=== PATIENT | female | born 1990 | race Two or more races ===

== ENCOUNTER 2023-09-08 13:17 | Outpatient (AMB) | payer OTHER, SELFPAY ==
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
[2023-09-08 14:28] VITALS: BP 140/82; PULSE 80; O2SAT 100; BMI 34.2
== END 2023-09-08 15:38 | disposition home or self-care (01) ==
PROVIDERS: Visit Provider Nurse Practitioner Primary Care
DX: M54.2 Cervicalgia (principal); M25.512 Pain in left shoulder; Z04.3 Encounter for examination and observation following other accident
CPT/HCPCS: 99213

== ENCOUNTER 2023-09-08 15:04 | Outpatient (REF) | payer OTHER, SELFPAY ==
--- NOTE | ~2023-09-08 | XR_ITS ---
EXAMINATION: XR SHOULDER, LEFT CLINICAL INFORMATION: Left shoulder pain COMPARISON: None available. TECHNIQUE: AP external rotation, Grashey, scapular Y views of the left shoulder. FINDINGS: Calcification is evident superior to the humeral head on the left consistent with calcific tendinosis. No fracture, dislocation or bone lesion is evident. XR/XR shoulder LT min 2V IMPRESSION: Calcific tendinosis.
--- NOTE | ~2023-09-08 | XR_ITS ---
EXAMINATION: XR CERVICAL SPINE CLINICAL INFORMATION: Cervicalgia COMPARISON: None available. TECHNIQUE: Frontal, lateral and open-mouth views of the cervical spine were obtained. FINDINGS: There are no prevertebral soft tissue or bony abnormalities demonstrated. No compression fractures or subluxations are identified. Alignment is maintained at the atlanto-axial articulation. The disc spaces are preserved. No endplate changes are seen. The prevertebral soft tissues are normal. The foramina are patent. There is positional straightening of the normal cervical curvature. XR/XR cervical spine 3V IMPRESSION: Positional straightening. Otherwise unremarkable plain radiographic examination of the cervical spine.
== END 2023-09-08 15:05 | disposition home or self-care (01) ==
LOC: HO.HMGCX 15:04
PROVIDERS: PCP Internal Medicine; Visit Provider Nurse Practitioner Primary Care
DX: M54.2 Cervicalgia (principal); M25.512 Pain in left shoulder
CPT/HCPCS: 72040; 73030

== ENCOUNTER 2025-08-11 15:25 | Outpatient (AMB) | payer OTHER, SELFPAY ==
--- OUTSIDE RECORDS SUMMARY | 2025-01-05 10:00 | XMS_ITS ---
Author Organization [facility] [address] Address [address] [place] [address] Care Team Providers Care Ip Technology Transactions Attorney Name Role Phone [facility] Primary C are Provider Unavailable SUE MEDINA Unavailable [phone] Medications Medication SIG (Take, Route, Frequency, Duration) Notes Start Date End Date Status Propranolol HCl 10 MG Take 1-2 tablets a s needed for anxiety Orally 1-2 times daily; Duration: 30 days 12/01/2024 Active hydrOXYzine HCl 10 MG TAKE 1 TABLET BY M OUT THREE TIMES DAILY NEEDED FOR ANXIETY FOR UP TO 90 DAYS Oral; Duration: 30 Days Active valACYclovir HCl 1 GM Oral; Duration: 5 Days Active EluRyng 0.12-0.015 MG/24HR Vaginal; Dura tion: 28 Days Active Encounters Encounter Location Date Provider Diagnosis [facility] [address] [place] [id number] 01/05/2025 SUE MEDINA Assessments Encounter Date Diagnosis (ICD Code) Assessment Notes Treatment Notes Treatment Clinical Notes Section Notes 01/05/2025 Lotus is a 34-year-old female with history of obesity who presents to the office today for weight management consult. Medical history, labs, allergies, medications, and social history reviewed with the patient. Provided education on healthy diet and lifestyle which includes high-protein, low carbohydrate, high-fiber, and a variety of fruits and vegetables. Patient encouraged to exercise with emphasis on resistance training minimum 3 times per week to maintain muscle mass and cardio to burn fat. All patient questions answered. Patient will follow-up in 2 to 4 weeks for weight management. 01/05/2025: # Anxiety: Patient reports both depression and anxiety, anxious symptoms predominate at work while depression more predominant at home. Has never trialed SSRIs. Prescribed hydroxyzine for as needed anxiety however finds the medication makes her feel drowsy. We discussed potential benefit of propranolol as needed for situational anxiety. Patient expressing interest. Will prescribe propranolol 10 to 20 mg taken p.o. 1 hour before anxiety producing event. If initial dose is insufficiently effective may increase by 10 to 20 mg prior to next anxiety provoking situation up to maximum of 60 mg daily. Discussed proper use of medication and potential side effect profile including but not limited to fatigue, dizziness, constipation, and decreased heart rate. Will continue to monitor based on effect of medication. 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 Continue Valtrex as needed. # Obesity: Weight 221 pounds, BMI 37.93. Discussed importance of diet and lifestyle to maintain healthy weight. Patient interested in scheduling weight loss consultation for further assistance. Will continue to monitor at subsequent visits. Patient was reassured and welcomed to the practice. We discussed that we stress a hollistic medical approach with emphasis on lifestyle modification. Patient was informed that a healthy lifestyle with exercise and good eating habits can help reduce their risk of medical complications. Patient is explained that obesity increases their risk of diabetes, cardiovascular disease, or organ damage. We spent a lot of time discussing the relationship between food, exercise, sleep, mental health and obesity. Patient was counseled on the importance EATING local, organic food when possible. Patient was educated on clean 15 and dirty dozen. I provided information about reading books called The Food Rules by Will Mann and Eat Fat Get Lean by Dr Jason Bro. Self education is important in the journey for weight management. Patient was offered diagnostic testing/ SECA scale. We want to measure visceral adiposity, advanced body composition, adverse lipids, fatty acid balance, risk for heart disease and atherosclerosis, markers of inflammation and genetic susceptibility. Patient was counseled on weight management and was advised to lose weight using A. Meal Replacement Products Patient was educated on the replacement products called optifast. This is a good way of taking fixed amount of calories. It has been shown in studies to be ineffective weight management tool. This however has to be coupled with lifestyle intervention as well as laboratory data and EKG monitoring. It is impossible to know how a person will tolerate complete meal replacement. The side effects of meal replacement and weight loss could include syncopal attacks, dizziness, gallstones, potential cholecystectomy, possible heart attack and even . The benefits of meal replacement would be potential weight loss but no guarantees can be made. Meal replacement products are not covered by insurance. Once the patient has bought these products we cannot return them B. Lifestyle management which includes several strategies as below 1. Eat a low carbohydrate good fat good protein diet. Eliminate refined carbohydrates from the diet. Limit sugared beverages. Eat local organic when possible. Cook your own meals. Read food labels. Focus on healthy snacks. Portion control and food with low glycemic index 2. Exercise regularly. Try to get at least 6000 steps a day. Use a predominant to track activity level. Consider using apps like 7 minute excercise, myGidsynesspal, lose it, stick as needed for self-monitoring and weight management. Consider group exercises. Consider hiring a retail personal banker. Regular exercise is shafer to sustainable health and prevents as a buffer against weight regain 3. Sleep is most important for healing. Try to sleep at least 6-8 hours a night. A good quality sleep needs a sleep ritual with ideal room temperature of around 68. It might help to take a shower and have no electronics in the room and sleep in a very dark room without artificial light. Start sleep routine and get up early in the morning and go to bed on time. 4. Make a social connection. Surround yourself with positive people with positive energy. Connect with friends and family. 5. Get into the habit of meditating and mindfulness while doing everything. 6. Go outside and connect with nature. C. Prescription medications Patient was educated on the use of prescription medications for medical weight loss. This is a growing list and includes phentermine, Topamax,Qsymia, contrave, belviq and saxenda, wegovy etc. All prescription medications could have side effects including but not limited to kidney stones, seizure disorder cardiac arrhythmias heart attack pancreatitis, GI effects, Etc. Patient was encouraged to read the prescription insert and have coaching with their pharmacist and make an informed decision about taking medication and know that these medications are being prescribed with good intentions and we do not know how a patient would react to the medication. Some medications are FDA approved for weight loss and there is also off label use depending on patient's inability to afford medications in an attempt to lose weight D. Behavioral counseling was done to establish a relationship between food and an mood. Patient was provided information about local counseling and psychiatry and Dr Ritchie at [facility]. We would like to cover regular topics and build on low glycemic eating exercise mindful eating, using yoga and meditation along with deep breathing and connecting with friends and family. E. MASS PAT reviewed, Patient's current medications were reviewed and opinion was given on medication that can cause weight gain and can be substituted F. Patient was assessed for risk with obesity including and not limiting to atherosclerosis heart disease stroke kidney disease, restrictive lung disease, irritable bowel syndrome and overall mortality. Risk of developing prediabetes diabetes and metabolic syndrome was discussed G. Therapeutic plan: We have decided to make therapeutic plan which would include choosing wisely on calories restricting portion getting active, tracking weight, getting good quality sleep and working on time management H. Patient will follow up in 4 weeks for weight management Total time spent today was 60 minutes of which greater than 50% was spent on coordinating and counseling Case discussed with collaborating physician Juan Carlos Martinez who reviewed the assessment and plan. Chart, medications, labs, vital signs reviewed. Dictation was accomplished with the use of Anipipo voice recognition software, prone to medical misidentifications and grammatical errors. This is unintentional and the practitioner does try to identify and correct these, but some could still be present. Please do not hesitate to contact practitioner for clarification. All questions answered to patients satisfaction. Patient verbalized understanding of diagnosis and treatments explained. To call sooner prior to next visit it any questions/concerns arise. Plan Of Treatment No Information Progress Notes * Erik PORRASOB:[birth year] (35 yo F)Acc No.[id number]:01/05/2025 Patient: Lotus CAMPBELL Provider: Hay MEDINA :1990 A ge:34 Y S ex:Female Date:01/05/2025 Address:[facility] [place] Pcp:[facility] Dorian Subjective: * Chief Complaints: * * HPI: C onstitutional: Lotus is a 34-year-old female with history of anxiety, asthma, cold sores, and obesity who presents today for weight management consultation. * ROS: C onstitutional: Denies sudden weight loss, fever, night sweats, excessive fatigue, or changes in sleep. CV: Denies chest pain or heart palpitations. Respiratory: Denies SOB, wheezing, or pleuritic pain. GI: Denies n/v/d, constipation, blood in stools, pain associated with eating, indigestion, or difficulty/pain with swallowing. MSK: Denies back pain, joint deformity/pain, or muscle weakness. Integumentary: Denies skin changes. Endocrine: Denies polyuria, polyphagia, or polydipsia. No heat/cold intolerance or excessive thirst. * Medical History: * Medications: T aking EluRyng 0.12-0.015 MG/24HR Ring Vaginal , Taking valACYclovir HCl 1 GM Tablet Oral , Taking hydrOXYzine HCl 10 MG Tablet TAKE 1 TABLET BY MOUTH THREE TIMES DAILY NEEDED FOR ANXIETY FOR UP TO 90 DAYS Oral , Taking Propranolol HCl 10 MG Tablet Take 1-2 tablets as needed for anxiety Orally 1-2 times daily Objective: * Vitals: * Physical Examination: G eneral: Age appropriate, well-appearing 34-year-old female in no acute distress, speaking in full sentences without respiratory compromise. Well groomed, well developed. Alert, interactive. Skin: Warm, dry and intact. No lesions/rashes/erythema. HEENT: Normocephalic/atraumatic. Neck/Thyroid: Thyroid symmetrical, nonenlarged, and free of nodules to palpation. Lungs: Clear to auscultation bilaterally. CV: Regular rate and rhythm without murmurs, rubs, or gallops. 2+ radial pulses bilaterally. Neuro: CN II-XII grossly intact. Steady gait with non-assisted ambulation observed. Psych: Stable mood and affect. Assessment: * Assessment: Lotus is a 34-year-old femal e with history of obesity who presents to the office today for weight management consult. Medical history, labs, allergies, medications, and social history reviewed with the patient. Provided education on healthy diet and lifestyle which includes high-protein, low carbohydrate, high-fiber, and a variety of fruits and vegetables. Patient encouraged to exercise with emphasis on resistance training minimum 3 times per week to maintain muscle mass and cardio to burn fat. All patient questions answered. Patient will follow-up in 2 to 4 weeks for weight management. 01/05/2025: # Anxiety: Patient reports both depression and anxiety, anxious symptoms predominate at work while depression more predominant at home. Has never trialed SSRIs. Prescribed hydroxyzine for as needed anxiety however finds the medication makes her feel drowsy. We discussed potential benefit of propranolol as needed for situational anxiety. Patient expressing interest. Will prescribe propranolol 10 to 20 mg taken p.o. 1 hour before anxiety producing event. If initial dose is insufficiently effective may increase by 10 to 20 mg prior to next anxiety provoking situation up to maximum of 60 mg daily. Discussed proper use of medication and potential side effect profile including but not limited to fatigue, dizziness, constipation, and decreased heart rate. Will continue to monitor based on effect of medication. 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 Continue Valtrex as needed. # Obesity: Weight 221 pounds, BMI 37.93. Discussed importance of diet and lifestyle to maintain healthy weight. Patient interested in scheduling weight loss consultation for further assistance. Will continue to monitor at subsequent visits. Patient was reassured and welcomed to the practice. We discussed that we stress a hollistic medical approach with emphasis on lifestyle modification. Patient was informed that a healthy lifestyle with exercise and good eating habits can help reduce their risk of medical complications. Patient is explained that obesity increases their risk of diabetes, cardiovascular disease, or organ damage. We spent a lot of time discussing the relationship between food, exercise, sleep, mental health and obesity. Patient was counseled on the importance EATING local, organic food when possible. Patient was educated on clean 15 and dirty dozen. I provided information about reading books called The Food Rules by Will Mann and Eat Fat Get Lean by Dr Jason Bro. Self education is important in the journey for weight management. Patient was offered diagnostic testing/ SECA scale. We want to measure visceral adiposity, advanced body composition, adverse lipids, fatty acid balance, risk for heart disease and atherosclerosis, markers of inflammation and genetic susceptibility. Patient was counseled on weight management and was advised to lose weight using A. Meal Replacement Products Patient was educated on the replacement products called optifast. This is a good way of taking fixed amount of calories. It has been shown in studies to be ineffective weight management tool. This however has to be coupled with lifestyle intervention as well as laboratory data and EKG monitoring. It is impossible to know how a person will tolerate complete meal replacement. The side effects of meal replacement and weight loss could include syncopal attacks, dizziness, gallstones, potential cholecystectomy, possible heart attack and even . The benefits of meal replacement would be potential weight loss but no guarantees can be made. Meal replacement products are not covered by insurance. Once the patient has bought these products we cannot return them B. Lifestyle management which includes several strategies as below 1. Eat a low carbohydrate good fat good protein diet. Eliminate refined carbohydrates from the diet. Limit sugared beverages. Eat local organic when possible. Cook your own meals. Read food labels. Focus on healthy snacks. Portion control and food with low glycemic index 2. Exercise regularly. Try to get at least 6000 steps a day. Use a predominant to track activity level. Consider using apps like 7 minute excercise, myGidsynesspal, lose it, stick as needed for self-monitoring and weight management. Consider group exercises. Consider hiring a retail personal banker. Regular exercise is shafer to sustainable health and prevents as a buffer against weight regain 3. Sleep is most important for healing. Try to sleep at least 6-8 hours a night. A good quality sleep needs a sleep ritual with ideal room temperature of around 68. It might help to take a shower and have no electronics in the room and sleep in a very dark room without artificial light. Start sleep routine and get up early in the morning and go to bed on time. 4. Make a social connection. Surround yourself with positive people with positive energy. Connect with friends and family. 5. Get into the habit of meditating and mindfulness while doing everything. 6. Go outside and connect with nature. C. Prescription medications Patient was educated on the use of prescription medications for medical weight loss. This is a growing list and includes phentermine, Topamax,Qsymia, contrave, belviq and saxenda, wegovy etc. All prescription medications could have side effects including but not limited to kidney stones, seizure disorder cardiac arrhythmias heart attack pancreatitis, GI effects, Etc. Patient was encouraged to read the prescription insert and have coaching with their pharmacist and make an informed decision about taking medication and know that these medications are being prescribed with good intentions and we do not know how a patient would react to the medication. Some medications are FDA approved for weight loss and there is also off label use depending on patient's inability to afford medications in an attempt to lose weight D. Behavioral counseling was done to establish a relationship between food and an mood. Patient was provided information about local counseling and psychiatry and Dr Ritchie at [facility]. We would like to cover regular topics and build on low glycemic eating exercise mindful eating, using yoga and meditation along with deep breathing and connecting with friends and family. E. MASS PAT reviewed, Patient's current medications were reviewed and opinion was given on medication that can cause weight gain and can be substituted F. Patient was assessed for risk with obesity including and not limiting to atherosclerosis heart disease stroke kidney disease, restrictive lung disease, irritable bowel syndrome and overall mortality. Risk of developing prediabetes diabetes and metabolic syndrome was discussed G. Therapeutic plan: We have decided to make therapeutic plan which would include choosing wisely on calories restricting portion getting active, tracking weight, getting good quality sleep and working on time management H. Patient will follow up in 4 weeks for weight management Total time spent today was 60 minutes of which greater than 50% was spent on coordinating and counseling Case discussed with collaborating physician Juan Carlos Martinez who reviewed the assessment and plan. Chart, medications, labs, vital signs reviewed. Dictation was accomplished with the use of Anipipo voice recognition software, prone to medical misidentifications and grammatical errors. This is unintentional and the practitioner does try to identify and correct these, but some could still be present. Please do not hesitate to contact practitioner for clarification. All questions answered to patients satisfaction. Patient verbalized understanding of diagnosis and treatments explained. To call sooner prior to next visit it any questions/concerns arise. Plan: * Treatment: * Images: Billing Information: * Visit Code: * Procedure Codes: * Electronic signature of MINNIE MEDINA PA-C, [id number] on 08/11/2025 at 03:27 PM EDT Sign off status: Pending * Provider: Hay MEDINA Date: 0 01/05/2025 Generated for Joe tomlinson/Linda/eTransmitting on: 1 03:27 PM EDT History and Physical Notes * HPI (History of Present Illness) Category Sub-Category Detail Notes Category Not es Constitutional Lotus is a 34 -year-old female with history of anxiety, asthma, cold sores, and obesity who presents today for weight management consultation. Physical Examination Category Sub-Category Detail Notes Section Note s General: Age appropriate, well-appearing 34-year-old female in no acute distress, speaking in full sentences without respiratory compromise. Well groomed, well developed. Alert, interactive. Skin: Warm, dry and intact. No lesions/rashes/erythema. HEENT: Normocephalic/atraumatic. Neck/Thyroid: Thyroid symmetrical, nonenlarged, and free of nodules to palpation. Lungs: Clear to auscultation bilaterally. CV: Regular rate and rhythm without murmurs, rubs, or gallops. 2+ radial pulses bilaterally. Neuro: CN II-XII grossly intact. Steady gait with non-assisted ambulation observed. Psych: Stable mood and affect.
--- OUTSIDE RECORDS SUMMARY | 2025-01-12 11:15 | XMS_ITS ---
Author Organization [facility] [address] Address [address] [place] [address] Care Team Providers Care Spare Hand Carding Name Role Phone [facility] Primary C are Provider Unavailable SUE MEDINA [phone] Encounters Encounter Location Date Provider Diagnosis [facility] [address] [address] 01/12/2025 SUE MEDINA Plan Of Treatment No Information Progress Notes * Erik PORRASOB:[birth year] (35 yo F)Acc No.[id number]:01/12/2025 CPE Patient: Lotus CAMPBELL Provider: Hay MEDINA :1990 A ge:34 Y S ex:Female Date:01/12/2025 Address:[address] [id number] Pcp:[facility] Dorian Subjective: * Chief Complaints: * * Medical History: Objective: * Vitals: Assessment: Plan: * Treatment: * Images: Billing Information: * Visit Code: * Procedure Codes: Care Plan Details* * Electronic signature of MINNIE MEDINA PA-C, [id number] on 08/11/2025 at 03:27 PM EDT Sign off status: Pending * Provider: Hay MEDINA Date: 0 01/12/2025 Generated for Joe tomlinson/Fabeatris/eTransmitting on: 1 03:27 PM EDT
--- OUTSIDE RECORDS SUMMARY | 2025-02-07 10:45 | XMS_ITS ---
Author Organization [facility] [address] Address [address] [place] [address] Care Team Providers Care Narrative Writer Name Role Phone [facility] Primary C are Provider Unavailable SUE MEDINA [phone] Encounters Encounter Location Date Provider Diagnosis [facility] [address] [address] 02/07/2025 SUE MEDINA Plan Of Treatment No Information Progress Notes * Erik PORRASOB:[birth year] (35 yo F)Acc No.[id number]:02/07/2025 Patient: Santiago CAMPBELLie Provider: Hay MEDINA :1990 A ge:34 Y S ex:Female Date:02/07/2025 Address:[address] [id number] Pcp:[facility] Dorian Subjective: * Chief Complaints: * * Medical History: Objective: * Vitals: Assessment: Plan: * Treatment: * Images: Billing Information: * Visit Code: * Procedure Codes: * Electronic signature of MINNIE MEDINA PA-C, [id number] on 08/11/2025 at 03:27 PM EDT Sign off status: Pending * Provider: Hay MEDINA Date: 0 02/07/2025 Generated for Joe tomlinson/Fabeatris/eTransmitting on: 1 03:27 PM EDT
--- OUTSIDE RECORDS SUMMARY | 2025-08-11 15:27 | XMS_ITS | Clinical Summary ---
Author Organization [facility] [address] [place] [address] [place], [place] [address] [address] Phone Care Team Providers Care Job Development Specialist Name Role Phone Unavailable Primary Care Provider Unavailabl e Allergies Active Allergy Reactions Criticality Noted Date Comments Amoxicillin Trihydrate Hives 08/04/2012 Latex Rash Medium 05/03/2012 Medications valACYclovir (VALTREX) 1 gram tablet Take 1 tablet (1,000 mg total) by mouth 1 (one) time each day. 03/09/20 24 Active albuterol HFA (PROAIR HFA ; PROVENTIL HFA ; VENTOLIN HFA) 90 mcg/actuation inhaler Inhale 2 Puffs into the lungs 4 times daily as needed for Cough, Wheezing or Shortness of Breath. 12/27/19 23 Active hydrOXYzine HCL (ATARAX) 10 mg tablet Take 1 Tablet by mouth 3 times daily as needed for Anxiety for up to 90 days. Active furosemide (LASIX) 20 mg tablet Take 1 tablet (20 mg total) by mouth 1 (one) time each day. 30 each 01/05/20 25 Active etonogestreL-eth inyl estradioL (EluRyng) 0.12-0.015 mg/24 hr vaginal ringIndications: Encounter for surveillance of vaginal ring hormonal contraceptive device Insert vaginally and leave in place for 3 consecutive weeks, then remove for 1 week. 1 each 2 05/22/20 25 Active semaglutide (Wegovy) 0.25 mg/0.5 mL injection penIndications:O besity (BMI 30.0-34.9) Inject 0.25 mg under the skin every 7 (seven) days. 2 mL 2 03/06/20 2024 Discontinued Active Problems Problem Noted Date Diagnosed Date Abnormal Pap smear of cervix 09/06/2024 Overview (09/06/2024): LGSIL with colpo & bx showing HPV Yeast vaginitis 07/19/2021 Overview (09/06/2024): Last Assessment & Plan: Rx for fluconazole. 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 I gave Rx for tx dose prn. Offered suppression, but she declines at this time. UpToDate article patient education material given. Port-wine stain of face 08/08/2015 Asthma 01/16/2014 Encounters Date Type Department Care Team Description 07/27/2025 Telephone Adult Medicine [place] - [address] [phone] Sejal Winters MD 05/22/2025 4:00 PM EDT Office Visit Obstetrics and Gynecology - [address] [phone] Porsha Garza CNM Unprotected sex (Primary Dx); Screen for STD (sexually transmitted disease); Encounter for surveillance of vaginal ring hormonal contraceptive device; examination or test, negative result; control counseling from Last 3 Months Immunizations Immunization Administration Dates Next Due DTaP (Infanrix) 6wks to less than 7yo ,03/09/1990,1988,09/09,1988 [id number]-KYD-VXC (Pentacel) 2mo to less than 5yo 02/07/1990 Hepatitis B Pediatric (Enger ix B; Recombivax HB) to less than 20 yo 03/09/2000,10/09/1999,09/09/1999 IPV Inactivated polio (Ipol) 6wks and older 1988,1988 Influenza trivalent, 0.5mL, preservative free (Fluarix; FluLaval; Fluzone) ages 6mo and older (Afluria) 3 years and older 08/21/2021 MMR, measles mumps and rubel la Live (Priorix; M-M-R II) 12mo and older 06/09/2000,02/07/1990 OPV 04/09/1994,03/09/1990 Pneumococcal polysaccharide 23 valent (Pneumovax 23) 2yo and older 01/16/2014 Tdap Tetanus diptheria acell ular pertussis (Boostrix; Adacel) 7yo and older 01/15/2009 Surgical History Surgery Date Site/Laterality Comments HERNIA REPAIR PROCEDURE: REPAIR INGUINAL HERNIA; COMMENT: right WISDOM TOOTH EXTRACTION PROCEDURE: HISTORICAL WISDOM TEETH EXTRACTION TONSILLECTOMY PROCEDURE: HISTORICAL TONSILLECTOMY OTHER SURGICAL HISTORY 10/27/2018 PROCEDURE: [place] ENDOMETRIAL BX W/WO ENDOCERVIX BX W/O DILAT SPX; COMMENT: [facility] report-benign tissue Medical History Medical History Date Comments Asthma DX:Asthma GERD (gastroesophageal reflux disease) 07/08/2019 DX:GERD (gastroesophageal reflux disease) Abnormal Pap smear of cervix DX: Abnormal Pap smear of cervix; COMMENT: LGSIL with colpo & bx showing HPV Family history of breast cancer 10/17/2015 DX:Family history of breast cancer Herpes simplex vulvovaginitis 03/17/2018 DX :Herpes simplex vulvovaginitis Lichen simplex chronicus 01/27/2018 DX:Lich en simplex chronicus Port-wine stain of face 08/08/2015 DX:Port- wine stain of face Family History Medical History Relation Name Comments Breast cancer Aunt 1 unilateral; ma ternal aunt Breast cancer Aunt 2 unilateral; ma ternal aunt Breast cancer Aunt 3 paternal aunt; unilateral Other: SEIZURE DISORDER Father DECE ASED AGE 29 Uterine cancer Maternal Grandmother Hypertension Mother bipolar, diabet es, alcohol Hypertension Paternal Grandmother diabete s Relation Name Status Comments Aunt 1 Aunt 2 Aunt 3 Father (Age 28) seizure di soder? Maternal Grandmother Mother Alive Paternal Grandmother Sister 1 Alive hypothyroid Sister 2 Alive Social History Tobacco Use Types Packs/Day Years Used Date Smoking Tobacco: Never Smokeless Tobacco: Never Tobacco Cessation:Counseling Given: Not Answered Alcohol Use Standard Drinks/Week Comments Not Currently 0.8 (1 standard drink = 0.6 oz p ure alcohol) Housing Instability Answer Date Recorde d Are you worried that in the next 2 months you may not have stable housing? No 05/17/2025 Food Access & Nutrition Answer Date Rec orded Do you have access to a vari ety of food including fruits and vegetables? Yes 05/17/2025 Access to Healthcare Answer Date Record ed Within the last 3 months, ho w many times did you visit the emergency department for your medical care? 0 05/17/2025 Health Literacy Answer Date Recorded How often do you need to hav e someone help you when you read instructions, pamphlets, or other written material from your doctor or pharmacy? Never 05/17/2025 Caregiver: How often do you need to have someone help you when you read instructions, pamphlets, or other written material from your doctor or pharmacy? Not on file 05/17/2025 Financial Risk Answer Date Recorded How hard is it for you to pa y for the very basics like food, housing, medical care, and air conditioning / heating? Somewhat hard 05/17/2025 Transportation Answer Date Recorded Has the lack of transportati on kept you from meetings, work, or from getting things needed for daily living? No Has the lack of transportati on kept you from medical appointments or from getting medications? No 05/17/2025 Social Isolation Answer Date Recorded How often do you feel lonely or isolated from those around you? Sometimes 05/17/2025 Food Risk Answer Date Recorded Within the past 12 months we worried whether our food would run out before we got money to buy more. Never true 05/17/2025 Within the past 12 months th e food we bought just didn't last and we didn't have money to get more. Never true 05/17/2025 Dependent Care Answer Date Recorded Do you need help finding or paying for care for your loved ones. For example, teacher early childhood development or elderly care for an older adult? No 05/17/2025 Education Answer Date Recorded Do you think completing more education or training, like finishing a GED, going to college, or learning a trade, would be helpful for you? Patient declined 05/17/2025 Employment and Income Answer Date Recor ded During the last four weeks, have you been actively looking for work? Patient declined 05/17/2025 Living Situation Answer Date Recorded What is your living situation? Unrecognized valu e 05/17/2025 Comments Unknown Sex and Gender Information Value Date Recorded Sex Assigned at Not on file Legal Sex Female 4:54 AM EST Gender Identity Not on file Sexual Orientation Not on file Obstetrics History Para Term AB IAB SAB Ectopic Multiple Livin g Live Births 2 2 2 0 2 Date Outcome GA Total Labor Labor/2nd/3rd Weight Sex Type Anes PTL Linda A1 A5 Name Clin Term Term Last Filed Vital Signs Vital Sign Reading Time Taken Comments Blood Pressure 120/78 05/22/2025 4:42 PM EDT Pulse 63 05/22/2025 4:42 PM EDT Temperature - - Respiratory Rate 14 05/22/2025 4:42 PM EDT Oxygen Saturation - - Inhaled Oxygen Concentration - - Weight 101 kg (223 lb 3.2 oz) 05/22/2025 4:42 PM EDT Height 150 cm (4' 11.06 ) 05/22/2025 4:42 PM EDT Body Mass Index 45 05/22/2025 4:42 PM EDT Plan of Treatment Health Maintenance Due Date Last Done Comments Breast Cancer Screening 1988 Pneumococcal Vaccine: Pediatrics (0 to 5 Years) and At-Risk Patients (6 to 49 Years) (2 of 2 - PCV) 01/16/2015 01/16/2014 HPV Vaccines (1 - 3-dose SCDM series) 2015 DTaP,Tdap,and Td Vaccines (7 - Td or Tdap) 01/15/2019 01/15/2009, 04/09/1999, 03/09/1990, Additional history exists COVID-19 Vaccine ( - season) 2025 10/12/2021, 12/14/2020, 11/23/2020 Influenza Vaccine (#1) 2025 08/21/2021 Social Influencers of Health Screening 05/17/2026 05/17/2025 Cervical Cancer Screening: HPV 10/10/2026 10/10/2021 Cholesterol Screening (Lipid Panel) 12/09/2028 12/09/2023 RSV Immunization Adult Patients (1 - 1-dose 75+ series) 2063 HIB Vaccines Completed 02/07/1990, 02/07/1990 IPV Vaccines Completed 04/09/1994, 05/11/1989, 02/07/1990, Additional history exists Hepatitis B Vaccines Completed 03/09/2000, 10/09/1999, 09/09/1999 MMR Vaccines Completed 06/09/2000, 02/07/1990 HIV Screening Completed 07/19/2021 Hepatitis C Screening Completed 07/24/2021 Depression Screening Completed 05/17/2025, 08/30/20 24 Hepatitis A Vaccines Aged Out No long er eligible based on patient's age to complete this topic Meningococcal ACWY Vaccine Aged Out N o longer eligible based on patient's age to complete this topic Meningococcal B Vaccine Aged Out No l onger eligible based on patient's age to complete this topic RSV Immunization Patients Under 20 months Aged Out No longer eligible based on patient's age to complete this topic Varicella Vaccines Aged Out No longer eligible based on patient's age to complete this topic Procedures Procedure Name Priority Date/Time Associated Diagnosis Comments POC , URINE DIAGNOSTIC Routine 05/22/2025 5:13 PM EDT Encounter for surveillance of vaginal ring hormonal contraceptive device TRICHOMONAS VAGINALIS ANTIGEN Routine 05/22/2025 4:58 PM EDT Screen for STD (sexually transmitted disease) CHLAMYDIA TRACHOMATIS AND NEISSERIA GONORRHOEAE PCR Routine 05/22/2025 4:58 PM EDT Screen for STD (sexually transmitted disease) DEPRESSION SCREENING Routine 08/30/2024 LIPID PANEL Routine 12/09/2023 HPV Routine 10/10/2021 HEPATITIS C SCREENING Routine 07/24/2021 HIV SCREENING Routine 07/19/2021 from Last 3 Months or Most Recently Relevant to Health Maintenance Results * POC , urine manually resulted (05/22/2025 5:13 PM EDT) HCG, Ur POC Negative Negative POC hCG Int QC Pass? Yes Yes Urine Urine specimen obtained by clean catch procedure / Unknown 05/22/2025 5:13 PM EDT us Porsha Garza CNM POINT OF CARE TEST ENTER/EDIT ORDERABLES Final Result * Trichomonas vaginalis antigen (05/22/2025 4:58 PM EDT) Trichomonas vaginalis Negative Negative 05/23/2025 4:02 PM EDT [facility] Swab Vaginal structure / Unknown Non-blood Collection / Unknown 05/22/2025 4:58 PM EDT 05/22/2025 4:58 PM EDT us Porsha [facility] MICROBIOLOGY - GENERAL ORD ERABLES Final Result Performing Organization Address City/[facility]/ZIP Co de Phone Number [facility] [address] [place] [address], [place] [phone] * Chlamydia trachomatis and Neisseria gonorrhoeae molecular study (05/22/2025 4:58 PM EDT) Pathologist [facility] Neisseria gonorrhoeae PCR Negative Negative LAB MOLECULAR DIAGNOSTICS METHOD 05/24/2025 9:35 AM EDT [facility] Chlamydia trachomatis PCR Negative Negative LAB MOLECULAR DIAGNOSTICS METHOD 05/24/2025 9:35 AM EDT [facility] Swab Cervix uteri structure / Unknown Non-blood Collection / Unknown 05/22/2025 4:58 PM EDT 05/22/2025 4:58 PM EDT us Porsha [facility] MICROBIOLOGY - GENERAL ORD ERABLES Final Result [facility] [address] [place] [address], [place] [phone] * Hm Depression Screening (08/30/2024) [facility] Depression Screening abstracted [facility] Provider HEALTH MAINTENANCE Final Result * (ABNORMAL) Lipid panel (12/09/2023) [facility] LDL/HDL Ratio 2 0 - 4 Triglycerides 64 0 - 150 mg/dL Cholesterol 207(A) 0 - 200 mg/dL HDL 86 >=40 mg/dL LDL Cholesterol 109(A) 0 - 100 mg/dL Blood Venous blood specimen / Unknown Result [facility] Provider LAB BLOOD ORDERABLES Poon[place] l Result * Cervical Cancer Screening: HPV (10/10/2021) [facility] Cervical Cancer Screening: HPV abstracted ,positive Result [facility] Provider HEALTH MAINTENANCE Final Result * Hepatitis C Screening (07/24/2021) [facility] Hepatitis C Screening abstracted Result [facility] Provider HEALTH MAINTENANCE Final Result * HIV Screening (07/19/2021) [facility] HIV Screening abstracted [facility] Provider HEALTH MAINTENANCE Final Result from Last 3 Months or Most Recently Relevant to Health Maintenance Insurance [facility] [employer]
--- OUTSIDE RECORDS SUMMARY | 2025-08-11 15:27 | XMS_ITS | Clinical Summary ---
Author Organization [facility] Address [address] [place] [address] Care Team Providers Care Vault Mechanic Name Role Phone Aldair Gooden MD Primary Care Provider [phone] Allergies Active Allergy Reactions Criticality Noted Date Comments Amoxicillin 12/08/2018 Latex 12/08/2018 Medications Medication Sig Dispensed Refills Start Date End Date Status norelgestromin-ethiny l estradiol (ORTHO EVRA) 150-35 MCG/24HR Place 1 patch onto the skin once a week. 0 Active valACYclovir (VALTREX) 1000 MG tablet Take 1,000 mg by mouth 2 (two) times a day. 0 Active omeprazole (PriLOSEC) 20 MG capsule Take 20 mg by mouth daily. 0 Active albuterol (PROVENTIL HFA;VENTOLIN HFA) 108 (90 Base) MCG/ACT inhaler Inhale 2 puffs into the lungs every 6 (six) hours as needed for wheezing. 0 Active meclizine (ANTIVERT) 25 MG tablet Take 1 tablet (25 mg total) by mouth 3 (three) times a day as needed for dizziness. 30 tablet 0 12/08/2018 Active Social History Tobacco Use Types Packs/Day Years Used Date Smoking Tobacco: Never Smokeless Tobacco: Never Sex and Gender Information Value Date Recorded Sex Assigned at Female 12/08/2018 11:22 AM EST Gender Identity Female 12/08/2018 11:22 AM EST Sexual Orientation Not on file Last Filed Vital Signs Vital Sign Reading Time Taken Comments Blood Pressure 120/60 12/08/2018 12:50 PM EST Pulse 60 12/08/2018 12:50 PM EST Temperature 36.2 C (97.2 F) 12/08/2018 12:50 PM EST Respiratory Rate 14 12/08/2018 12:5 0 PM EST Oxygen Saturation 100% 12/08/2018 12: 50 PM EST Inhaled Oxygen Concentration - - Weight 81.6 kg (180 lb) 12/08/2018 10:4 4 AM EST Simultaneous filing. User may be unaware of other data. Height 162.6 cm (5' 4 ) 12/08/2018 10:4 4 AM EST Simultaneous filing. User may be unaware of other data. Body Mass Index 30.9 12/08/2018 10:44 AM EST Plan of Treatment Not on file Care Teams Vault Mechanic Relationship Specialty Start Date End Date Aldair Gooden MD [address] [facility] [place] [address] PCP - General Family Medicine 12/08/18
--- OUTSIDE RECORDS SUMMARY | 2025-08-11 15:27 | XMS_ITS | Clinical Summary ---
Author Organization [facility] Address [address] [id number] Care Team Providers Care Course Developer Name Role Phone Aldair Gooden MD Primary Care Provider [phone] Aldair Gooden MD Unavailable [phone] Allergies Active Allergy Reactions Criticality Noted Date Comments Amoxicillin 01/05/2019 Reactions: Rash Latex 01/05/2019 Reactions: Rash , TouchWorks Comment: [id number]: local rash Medications Omeprazole Magnesium (PriLOSEC OTC) 20 MG EC tablet TAKE 1 TABLET DAILY. 0 01/05/2019 Active Valacyclovir HCl (Valtrex) 1 g tablet Take 1000mg as needed 0 01/05/2019 Active Albuterol (ProAir HFA) 90 mcg/ACT inhaler INHALE 1 TO 2 PUFFS EVERY 4 TO 6 HOURS NEEDED. 1 0 01/05/2019 Active Cetirizine-Pseu doephedrine (Allergy Rel D12, Cetirizine,) 5-120 MG per 12 hr tablet 0 01/05/2019 Active Meclizine HCl (ANTIVERT) 25 MG tablet TAKE 1 TABLET 3 TIMES DAILY NEEDED. 30 1 01/05/2019 Active Multiple Vitamin (Multi Vitamin) Tab TAKE 1 TABLET DAILY. 0 01/05/2019 Active Cholecalciferol (Vitamin D) 25 MCG (1000 UT) Tab TAKE 1 TABLET DAILY. 0 01/05/2019 Active Ascorbic Acid (Vitamin C) 500 MG tablet TAKE 2 TABLET Daily tablet 0 01/05/2019 Active Bacillus Coagulans-Inuli n (Probiotic) 1-250 BILLION-MG Cap TAKE 1 CAPSULE Daily capsule 0 01/05/2019 Active Sertraline HCl (ZOLOFT) 50 MG tablet TAKE 1 TABLET DAILY. 90 0 01/05/2019 Active Doxycycline Hyclate (VIBRA-TABS) 100 MG tablet TAKE 1 TABLET EVERY 12 HOURS DAILY. 20 0 01/19/2019 Active HYDROcodone Bit-Homatrop MBr (HYCODAN) 5-1.5 MG/5ML liquid TAKE 5 ML EVERY 4 HOURS NEEDED. 210 0 01/19/2019 Active Active Problems Problem Noted Date Diagnosed Date Acute bronchitis 01/19/2019 Herpes simplex 01/05/2019 Anxiety disorder 01/05/2019 Overview (12/13/2023): Description: Lu Tierney - therapist Eliecer. Papanicolaou smear 01/05/2019 Overview (12/13/2023): Description: Vandana Diamond, 08/2018. did colposcopy and came back normal. Class 1 obesity due to exces s calories without serious comorbidity with body mass index (BMI) of 30.0 to 30.9 in adult 01/05/2019 Encounter for screening mammogram for breast can cer 01/05/2019 Overview (12/13/2023): Description: 10/2018. normal Exercise-induced asthma 01/05/2019 GERD (gastroesophageal reflux disease) 9 Family History Medical History Relation Name Comments Diabetes Mother diabetes mellit us : Mother, Paternal Grandmother, Paternal Uncle Hypertension Mother hypertension : Mother, Paternal Grandmother, Paternal Uncle Psych/Mental Health Mother bipolar disorder : Mother, Sibling Diabetes Paternal grandmother diabete s mellitus : Mother, Paternal Grandmother, Paternal Uncle Hypertension Paternal grandmother hyperte nsion : Mother, Paternal Grandmother, Paternal Uncle Diabetes Paternal uncle diabetes solomon itus : Mother, Paternal Grandmother, Paternal Uncle Hypertension Paternal uncle hypertension : Mother, Paternal Grandmother, Paternal Uncle Psych/Mental Health Sibling bipolar disorder : Mother, Sibling Relation Name Status Comments Mother Paternal grandmother Paternal uncle Sibling Social History Tobacco Use Types Packs/Day Years Used Date Smoking Tobacco: Never Assessed Comments:Smoking Status:No c urrent tobacco use Comments Unknown Sex and Gender Information Value Date Recorded Sex Assigned at Not on file Legal Sex Female 8:32 PM EDT Gender Identity Not on file Sexual Orientation Not on file Last Filed Vital Signs Vital Sign Reading Time Taken Comments Blood Pressure 124/90 01/19/2019 11:34 AM EDT Pulse 67 01/19/2019 11:34 AM EDT Temperature 37.1 C (98.7 F) 01/19/2019 11:34 AM EDT Respiratory Rate 18 01/19/2019 11:34 AM EDT Oxygen Saturation 99% 01/19/2019 11:34 AM EDT Inhaled Oxygen Concentration - - Weight 85.9 kg (189 lb 6.4 oz) 01/19/2019 11:34 AM EDT Height 162.6 cm (5' 4 ) 01/05/2019 3:21 PM EST Body Mass Index 32.51 01/05/2019 3:21 PM EST Plan of Treatment Health Maintenance Due Date Last Done Comments Hepatitis C Screening 1988 Pap Smear 2004 DTaP/Tdap/Td (1 - Tdap) 2006 Hep B (1 of 3 - 19+ 3-dose series) 2007 COVID-19 Vaccine (1 - 2023-2 5 season) 2025 Influenza (#1) 2025 Zoster (Shingrix) (1 of 2) 2038 HPV Vaccine (No Doses Required) Completed Hep A Aged Out No longer eligi ble based on patient's age to complete this topic Hib Aged Out No longer eligi ble based on patient's age to complete this topic Meningococcal ACWY Aged Out No longer eligible based on patient's age to complete this topic Pneumococcal Aged Out No longer eligi ble based on patient's age to complete this topic Care Teams Course Developer Relationship Specialty Start Date End Date Aldair Gooden MD [address] [address] PCP - General 06/15/23 Aldair Gooden MD [address] [address] PCP - Backup PCP Family Medicine 12/10/23
--- OUTSIDE RECORDS SUMMARY | 2025-08-11 15:27 | XMS_ITS | Patient Health Record ---
Author Organization [facility] [address] Address [address] [place] [address] Care Team Providers Care Metal Plater Name Role Phone [facility] [place] Primary C are Provider Unavailable SUE MEDINA Unavailable [phone] Allergies Allergen (clinical drug ingredient) Drug/Non Drug Allergy documented on EMR Reaction Allergy Type Onset Date Status amoxicillin Amoxicillin Unknown Drug Allergy Act dennis Latex Latex Unknown Allergy Active Reason For Referral No Information Medications Medication SIG (Take, Route, Frequency, Duration) Notes Start Date End Date Status Propranolol HCl 10 MG Take 1-2 tablets a s needed for anxiety Orally 1-2 times daily; Duration: 30 days 12/01/2024 Active hydrOXYzine HCl 10 MG TAKE 1 TABLET BY M OUTH THREE TIMES DAILY NEEDED FOR ANXIETY FOR UP TO 90 DAYS Oral; Duration: 30 Days Active valACYclovir HCl 1 GM Oral; Duration: 5 Days Active EluRyng 0.12-0.015 MG/24HR Vaginal; Dura tion: 28 Days Active Problems Problem Type SNOMED Code ICD Code Onset Dates Problem Status W/U Status Risk Notes Problem Vitamin D deficiency (50259880) Vitamin D deficiency, unspecified (E55.9) Active confirmed Problem Lipid screening (753113014) Encounter for screening for lipoid disorders (Z13.220) Active confirmed Problem Colon cancer screening (200422764) Colon cancer screening (Z12.11) Active confirmed Problem Adult health examination (358348015) Adult general medical exam (Z00.00) Active confirmed Problem Obesity (672949682) Obesity (BMI 30-39.9) (E66.9) Active confirmed Problem Anxiety depression (212387175) Anxiety with depression (F41.8) Active confirmed Problem Endocrine/metabo lic screening (126118084) Encounter for screening for endocrine disorder (Z13.29) Active confirmed Vital Signs Heart Rate 79 /min 12/01/2024 Oximetry 98 % 12/01/2024 Blood pressure diastolic 76 mm Hg 12/01/2024 Height 64 in 12/01/2024 Blood pressure systolic 104 mm Hg 12/01/2024 Weight 221 lbs 12/01/2024 BMI 37.93 kg/m2 12/01/2024 Encounters Encounter Location Date Provider Diagnosis [facility] [address] [facility] [address] [place] [address] 12/01/2024 SUE MEDINA Breast cancer screening, high risk patient Z12.39 ; Anxiety with depression F41.8 ; History of cold sores Z86.19 and Obesity (BMI 30-39.9) E66.9 [facility] [address] [facility] [address] [place] [address] 01/05/2025 SUE MEDINA [facility] [address] [address] [facility] [address] [place] [address] 01/03/2025 SUE MEDINA Assessments Encounter Date Diagnosis (ICD Code) Assessment Notes Treatment Notes Treatment Clinical Notes Section Notes 12/01/2024 Anxiety with depression (ICD-10 - F41.8) Lotus is a 34-year-old female who presents to the office today for new patient evaluation. Patient is welcomed to the practice. They are coming from [facility]. Last complete physical exam with labs 3 years ago. Medications, medical history, allergies, surgeries, hospitalizations, family history, and social history were reviewed. Problem list updated. Cardiopulmonary and abdominal exam unremarkable. Patient will follow-up in office in 4 weeks for CPE and labs. All patient questions answered at this time. # Anxiety: Patient reports both depression and [...] Will continue to monitor at subsequent visits. All questions have been answered to patient's satisfaction. Patient verbalized understanding of diagnosis and treatments explained. Advised to call sooner prior to next visit it any questions/concerns arise. Case discussed with collaborating physician Camilla Martinez who reviewed the assessment and plan. Chart, medications, labs, vital signs reviewed. Dictation was accomplished with the use of HeatGenie voice recognition software, which is prone to medical misidentifications and grammatical errors. This are unintentional and the practitioner does try to identify and correct these, but some could still be present. Please do not hesitate to contact practitioner for clarification. 12/01/2024 Breast cancer screening, high risk patient (ICD-10 - Z12.39) Lotus is a 34-year-old female who presents to the office today for new patient evaluation. Patient is welcomed to the practice. They are coming from [facility] in [place]. Last complete physical exam with labs 3 years ago. Medications, medical history, allergies, surgeries, hospitalizations, family history, and social history were reviewed. Problem list updated. Cardiopulmonary and abdominal exam unremarkable. Patient will follow-up in office in 4 weeks for CPE and labs. All patient questions answered at this time. # Anxiety: Patient reports both depression and [...] Will continue to monitor at subsequent visits. All questions have been answered to patient's satisfaction. Patient verbalized understanding of diagnosis and treatments explained. Advised to call sooner prior to next visit it any questions/concerns arise. Case discussed with collaborating physician Camilla Martinez who reviewed the assessment and plan. Chart, medications, labs, vital signs reviewed. Dictation was accomplished with the use of HeatGenie voice recognition software, which is prone to medical misidentifications and grammatical errors. This are unintentional and the practitioner does try to identify and correct these, but some could still be present. Please do not hesitate to contact practitioner for clarification. 12/01/2024 History of cold sores (ICD-10 - Z86.19) Lotus is a 34-year-old female who presents to the office today for new patient evaluation. Patient is welcomed to the practice. They are coming from [facility]. Last complete physical exam with labs 3 years ago. Medications, medical history, allergies, surgeries, hospitalizations, family history, and social history were reviewed. Problem list updated. Cardiopulmonary and abdominal exam unremarkable. Patient will follow-up in office in 4 weeks for CPE and labs. All patient questions answered at this time. # Anxiety: Patient reports both depression and [...] Will continue to monitor at subsequent visits. All questions have been answered to patient's satisfaction. Patient verbalized understanding of diagnosis and treatments explained. Advised to call sooner prior to next visit it any questions/concerns arise. Case discussed with collaborating physician Camilla Martinez who reviewed the assessment and plan. Chart, medications, labs, vital signs reviewed. Dictation was accomplished with the use of HeatGenie voice recognition software, which is prone to medical misidentifications and grammatical errors. This are unintentional and the practitioner does try to identify and correct these, but some could still be present. Please do not hesitate to contact practitioner for clarification. 12/01/2024 Obesity (BMI 30-39.9) (ICD-10 - E66.9) Lotus is a 34-year-old female who presents to the office today for new patient evaluation. Patient is welcomed to the practice. They are coming from [facility] in [place]. Last complete physical exam with labs 3 years ago. Medications, medical history, allergies, surgeries, hospitalizations, family history, and social history were reviewed. Problem list updated. Cardiopulmonary and abdominal exam unremarkable. Patient will follow-up in office in 4 weeks for CPE and labs. All patient questions answered at this time. # Anxiety: Patient reports both depression and [...] Will continue to monitor at subsequent visits. All questions have been answered to patient's satisfaction. Patient verbalized understanding of diagnosis and treatments explained. Advised to call sooner prior to next visit it any questions/concerns arise. Case discussed with collaborating physician Camilla Martinez who reviewed the assessment and plan. Chart, medications, labs, vital signs reviewed. Dictation was accomplished with the use of HeatGenie voice recognition software, which is prone to medical misidentifications and grammatical errors. This are unintentional and the practitioner does try to identify and correct these, but some could still be present. Please do not hesitate to contact practitioner for clarification. 01/05/2025 Lotus is a 34-year-old female with [...] Consider using apps like 7 minute excercise, myPwintypal, lose it, stick as needed for self-monitoring and weight management. Consider group exercises. Consider hiring a personal banking representative. Regular exercise is shafer to sustainable health [...] counseling and psychiatry and Dr Ritchie at [facility]. We would like to cover regular topics [...] counseling Case discussed with collaborating physician Juan Carlso Martinez who reviewed the assessment and plan. Chart, medications, labs, vital signs reviewed. Dictation was accomplished with the use of HeatGenie voice recognition software, prone to medical misidentifications [...] it any questions/concerns arise. Plan Of Treatment Pending Test Test Name Order Date Mammogram 12/01/2024 LIPID PANEL, STANDARD 12/01/2024 COMPREHENSIVE METABOLIC PANEL 12/01/2024 CBC (INCLUDES DIFF/PLT) 12/01/2024 URINALYSIS, COMPLETE 12/01/2024 TSH 12/01/2024 VITAMIN D,25-OH,TOTAL,IA 12/01/2024 Insurance Providers Payer Name Payer Address Payer Phone Subscriber Number Group Number Insured Name Patient Relationship to Insured Coverage Start Date Coverage End Date [facility] [address] [place] [address] [id number] Lotus Maradiaga Self - patient is the insured 4 Medical (General) History Medical History History ICD Code weight gain/loss Surgical History Surgery Date(Month/Year) hernia repairs
--- OUTSIDE RECORDS SUMMARY | 2025-08-11 15:27 | XMS_ITS ---
Author Name [facility] Organization Unknown Care Team Organization Name Specialty Phone Email Start Date End Da te [facility] 03/16/2023 06/27/2024
--- NOTE | 2025-08-11 15:28 | A.OFFPC_ITS ---
Vital Signs 08/11/25 15:35 Height 5 ft 4 in Weight 101.605 kg BMI 38.4 BP 160/94 H Blood Pressure Location Lt brachial Position Sitting Respiration 18 Pulse 69 Pulse Source Pulse Oximeter Temp 98.7 F Temp Source Temporal Artery Scan Pulse Oximetry (%) 99 Oxygen Delivery Method Room Air Intake Visit Reasons: New Patient - see comments Competitive Intelligence Analyst Required: No Accompanied by: Self / Same As Patient Allergies amoxicillin Allergy (Mild, Verified 08/11/25 15:28) Rash latex Allergy (Mild, Verified 08/11/25 15:28) Rash Tobacco use date assessed: 08/11/25 Dental Screening Dental Screen Date: 08/11/25 Did you have a dental visit in the last 12 months?: Yes Did you have a dental problem in the last 6 months where you did not have access to dental care?: No Was dental information given to patient?: Patient has dentist HPI HPI Comments History of Present Illness Details 35-year-old female with history of anxie ty, mitral/tricuspid regurgitation, genital herpes, GERD presenting to the office today to establish care and for annual physical exam. She lives at home with her 2 children and feels safe there. 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 She occasionally drinks alcohol. No history of cigarette using. Quit smoking marijuana 2 weeks ago and denies any illicit drug use. She reports she has made significant improvements in her diet, much healthier overall. She is also resumed exercising about 1.5 months ago. She is walking more and has graduated to jogging as well. She is also lifting weights. Despite this she has not lost weight. Feels she does need to drink more water. Anxiety-occasionally manifests as palpitations, lightheadedness. Uses hydroxyzine as needed. Mitral/tricuspid regurgitation-will request records Genital herpes-last outbreak 2018. Has Valtrex as needed GERD-ppi Concerns: None Health maintenance: Requires referral for new drawing tracer Undergoes mammograms-has 2 aunts with history of breast cancer less than age 45. She did have genetic testing and is BRCA negative however Has never undergone colonoscopy lives with 2 children and feels safe there Eye exam is up-to-date Dental exam is up-to-date Reviewed past medical, surgical, social, family history ROS: General: No fevers, malaise, unintentional weight loss HEENT: No blurred vision, diplopia. No sore throat, nasal congestion, rhinorrhea, sinus pain, ear pain. No hearing loss Neck - no adenopathy Cardiovascular: No chest pain, palpitations, or leg edema Respiratory: No shortness of breath, wheezing, cough Breast: No pain, palpable lumps, nipple inversion GI: No dysphagia, odynophagia, globus sensation. No abdominal pain, nausea, vomiting, diarrhea, constipation, melena, hematochezia : No dysuria, hematuria, increased urinary frequency, decreased urinary output. SUPERVISOR COOLER SERVICE: No abn vaginal bleeding or discharge MSK: No myalgia, back pain, arthralgias Neuro: No headaches, weakness, paresthesias Psych: no depression/anxiery. No AH/VH. No SI/HI Skin: No rashes or lesions EXAM: Constitutional - Awake and Alert, No apparent distress Eyes - PERRLA, EOMI. Anicteric Ears - external ears normal, canals clear, TMs intact and pearly black with good cone of light Nose- septum midline, nares clear, no sinus tenderness Mouth/throat- mucosa moist, tongue and uvula midline, no erythema/edema or tonsillar adenopathy. Neck-trachea midline, thyroid symmetric without palpable nodules, no adenopathy Cardiovascular - S1S2, RRR, No edema Respiratory - Normal lung expansion, Normal respiratory effort, No respiratory distress, CTA bilaterally Gastrointestinal - NT / ND; +BS; No rebound or guarding - No CVA tenderness Extremities - no calf tenderness bilaterally, no swelling Musculoskeletal - Normal inspection, normal ROM Skin - Warm/Dry, no concerning lesions Neurological - Alert & oriented x3, CN II-XII in tact, 5/5 strength BUE and BLE, 2+ patellar reflexes, sensation intact Psychological - Appropriate affect [facility] Medical History Edema Lightheadedness Anxiety Mitral valve regurgitation Tricuspid regurgitation Family History Maternal Aunt Breast cancer, Onset Age: 30 Paternal Aunt Breast cancer, Onset Age: 35 Son Type 1 diabetes Mother Schizophrenia Bipolar disorder COPD (chronic obstructive pulmonary disease) Diabetes Social History Housing: House Patient Tobacco Use Status: Never used Tobacco e-Cigarette/Vaping Use: Never Used service: No Current occupational status: employed Current occupation: Mobile Ui/Ux Designer - [employer] Questionnaire AUDIT C Alcohol Use Questionnaire (AUDIT-C) 1. How often do you have a drink containing alcohol?: Monthly or less 2. How many drinks containing alcohol do you have on a typical day when you are drinking?: 1 or 2 3. How often do you have six or more drinks on one occasion?: Never Total Score: 1 Physical exam (Primary Care) Vital Signs: Last Vital Signs Temp 98.7 F 08/11/25 15:35 Pulse 69 08/11/25 15:35 Resp 18 08/11/25 15:35 BP 160/94 H 08/11/25 15:35 Pulse Ox 99 08/11/25 15:35 Oxygen Delivery Method Room Air 08/11/25 15:35 BMI result Body Mass Index 38.4 Tobacco/Smoking Status: Tobacco use Status Tobacco use date assessed 08/11/25 08/11/25 15:36 Patient Tobacco Use Status Never used Tobacco 08/11/25 15:36 e-Cigarette/Vaping Use Never Used 08/11/25 15:36 Office Procedures EKG Details: NSR, no ST/T-wave abnormality, no dysrhythmia. No AV jose blocks [id number], Complete Coding Level of Care Code New Pt Prev Care 18-39yr(99559 Diagnoses Routine medical exam Z00.00 Lightheadedness R42 FH: breast cancer in relative when <45 years old Z80.3 Anxiety F41.9 CPT Codes EKG - CPT: 33802-[id number], Complete ([id number]) Assessment & Plan Assessment & Plan (1) Routine medical exam: Code(s): Z00.00 - Encounter for general adult medical examination without abnormal findings Category: Medical Plan: 35-year-old female presenting for annual physical exam. Plan as below (2) Lightheadedness: Code(s): R42 - Dizziness and giddiness Category: Medical Plan: Will obtain most recent echocardiogram from [place]. EKG ordered for baseline evaluation. Possibly related to anxiety. Will monitor (3) FH: breast cancer in relative when <45 years old: Code(s): Z80.3 - Family history of malignant neoplasm of breast Category: Medical Plan: Screening mammograms ordered (4) Anxiety: Code(s): F41.9 - Anxiety disorder, unspecified Category: Medical Plan: Stable. Continue hydroxyzine PRN Plan Routine screening labs as ordered below Referred to drawing tracer and for screening mammogram. Continue following for annual skin exams and use sun protection Annual eye exams Wear seat belt in car Recommend regular exercise and healthy diet Follow-up for annual physical exam Orders: Orders MM tomosynthesis screening BI Today Z80.3 - Family history of malignant neoplasm of breast Basic Metabolic Panel Today Z00.00 - Encounter for general adult medical examination without abnormal findings Complete Blood Count Auto Diff Today Z00.00 - Encounter for general adult medical examination without abnormal findings Lipid Panel Today Z00.00 - Encounter for general adult medical examination without abnormal findings Vitamin D 25-OH Total Today Z00.00 - Encounter for general adult medical examination without abnormal findings Liver Panel Today Z00.00 - Encounter for general adult medical examination without abnormal findings Ferritin Today Z00.00 - Encounter for general adult medical examination without abnormal findings TSH reflex Free T4 Today Z00.00 - Encounter for general adult medical examination without abnormal findings AMB EKG-In Office Today R42 - Dizziness and giddiness Referrals BOW REPAIRER CUSTOM Referral Z12.4 - Encounter for screening for malignant neoplasm of cervix
[2025-08-11 15:35] VITALS: BP 160/94; PULSE 69; RESP 18; TEMP 37.1; O2SAT 99; BMI 38.4
== END 2025-08-11 16:19 | disposition home or self-care (01) ==
LOC: HO.HMCHD 15:26
PROVIDERS: Visit Provider Physician Assistant
DX: Z00.00 Encounter for general adult medical examination without abnormal findings (principal); R42 Dizziness and giddiness; Z80.3 Family history of malignant neoplasm of breast; F41.9 Anxiety disorder, unspecified

== ENCOUNTER → 2025-08-11 15:25 | Outpatient (BNVA) | payer OTHER, SELFPAY | PROVIDERS: Visit Provider Physician Assistant | DX: R42 Dizziness and giddiness (principal) | CPT/HCPCS: 93005 ==

== ENCOUNTER → 2025-08-23 07:45 | Outpatient (BNV) | payer OTHER, SELFPAY | PROVIDERS: Visit Provider Internal Medicine | DX: Z12.31 Encounter for screening mammogram for malignant neoplasm of breast (principal) | CPT/HCPCS: 77063; 77067 ==

== ENCOUNTER 2025-08-23 07:51 | Outpatient (REF) | payer OTHER, SELFPAY ==
--- OUTSIDE RECORDS SUMMARY | 2025-08-23 07:55 | XMS_ITS | Clinical Summary ---
Author Organization [facility] [address] [place] [address] [place], [place] [address], [place] [address] Phone Care Team Providers Care Specialist Physicians Name Role Phone Unavailable Primary Care Provider [...] 01/04/2021 Anxiety and depression 08/03/2019 Suicide attempt ([facility]24, [facility] V28) 08/03 GERD (gastroesophageal reflux disease) 9 Herpes simplex vulvovaginitis 03/17/2018 Overview (09/06/2024): Last Assessment & Plan: Educated pt re: HSV transmission and treatment. I gave Rx for tx dose prn. Offered suppression, but she declines at this time. UpToDate article patient education material given. Port-wine stain of face 08/08/2015 Asthma 01/16/2014 Encounters Date Type Department Care Team Description 07/27/2025 Telephone Adult Medicine [address] [address] Sejal Winters MD from Last 3 Months Immunizations Immunization Administration Dates Next Due DTaP (Infanrix) 6wks to less than 7yo ,03/09/1990,1988,09/09,1988 [id number] (Pentacel) 2mo to less than 5yo 02/07/1990 [...] HISTORICAL TONSILLECTOMY OTHER SURGICAL HISTORY 10/27/2018 PROCEDURE: [place] ENDOMETRIAL BX W/WO ENDOCERVIX BX W/O DILAT SPX; COMMENT: [facility] report-benign tissue Medical History Medical History [...] care for your loved ones. For example, childhood teacher or elderly care for an older adult? [...] Additional history exists COVID-19 Vaccine ( - 2024- season) 2025 10/12/2021, 12/14/2020, 11/23/2020 Influenza Vaccine (#1) 2025 08/21/2021 Social Influencers of Health Screening 05/17/2026 05/17/2025 Cervical Cancer Screening: HPV 10/10/2026 10/10/2021 Cholesterol Screening (Lipid Panel) 12/09/2028 12/09/2023 RSV Immunization Adult Patients (1 - 1-dose 75+ series) 2063 HIB Vaccines Completed 02/07/1990, 02/07/1990 IPV Vaccines Completed 04/09/1994, 11/1989, 02/07/1990, Additional history exists Hepatitis B Vaccines [...] Procedure Name Priority Date/Time Associated Diagnosis Comments DEPRESSION SCREENING Routine 08/30/2024 LIPID PANEL Routine 12/09/2023 HPV Routine 10/10/2021 HEPATITIS C SCREENING Routine 07/24/2021 HIV SCREENING Routine 07/19/2021 from Last 3 Months or Most Recently Relevant to Health Maintenance Results * Depression Screening (08/30/2024) [facility] Depression Screening abstracted [facility] Provider HEALTH MAINTENANCE Final Result * (ABNORMAL) Lipid panel (12/09/2023) [facility] LDL/HDL Ratio 2 0 - 4 Triglycerides 64 0 - 150 mg/dL Cholesterol 207(A) 0 - 200 mg/dL HDL 86 >=40 mg/dL LDL Cholesterol 109(A) 0 - 100 mg/dL Blood Venous blood specimen / Unknown Historical Provider LAB BLOOD ORDERABLES Poonam l Result * Cervical Cancer Screening: HPV (10/10/2021) [facility] Cervical Cancer Screening: HPV abstracted ,positive Historical Provider HEALTH MAINTENANCE Final Result * Hepatitis C Screening (07/24/2021) [facility] Hepatitis C Screening abstracted Historical Provider HEALTH MAINTENANCE Final Result * Hm HIV Screening (07/19/2021) HIV Screening abstracted us Historical Provider HEALTH MAINTENANCE Final Result from Last 3 Months or Most Recently Relevant to Health Maintenance Insurance [facility] [employer]
--- OUTSIDE RECORDS SUMMARY | 2025-08-23 07:55 | XMS_ITS | Clinical Summary ---
Author Organization [facility] Address [address] [id number] Care Team Providers Care Sports Nutritionist Name Role Phone Aldair Gooden MD Primary Care Provider [phone] Aldair Gooden MD Unavailable [phone] Allergies Active Allergy Reactions Criticality Noted Date Comments Amoxicillin 01/05/2019 Reactions: Rash Latex 01/05/2019 Reactions: Rash , TouchWorks Comment: [id number]: local rash Medications Omeprazole Magnesium (PriLOSEC OTC) [...] 3-dose series) 2007 COVID-19 Vaccine (1 - 2024-2 6 season) 2025 Influenza (#1) 2025 Zoster (Shingrix) [...] age to complete this topic Care Teams Sports Nutritionist Relationship Specialty Start Date End Date Aldair Gooden MD [address] [address] PCP - General 06/15/23 Aldair Gooden MD [address] [address] PCP - Backup PCP Family Medicine 12/10/23
--- OUTSIDE RECORDS SUMMARY | 2025-08-23 07:55 | XMS_ITS | Clinical Summary ---
Author Organization [facility] Address [address] [place] [address] Care Team Providers Care Plug Drill Operator Name Role Phone Aldair Gooden MD Primary Care Provider [phone] Allergies Active Allergy Reactions Criticality Noted Date [...] of Treatment Not on file Care Teams Plug Drill Operator Relationship Specialty Start Date End Date Aldair Gooden MD [address] [facility] [place] [address] PCP - General Family Medicine 12/08/18
== END 2025-08-23 07:52 | disposition home or self-care (01) ==
LOC: HO.MAMMO 07:51
PROVIDERS: Visit Provider Physician Assistant
DX: Z12.31 Encounter for screening mammogram for malignant neoplasm of breast (principal); Z80.3 Family history of malignant neoplasm of breast
CPT/HCPCS: 77063; 77067

== ENCOUNTER 2025-08-24 08:44 | Outpatient (REF) | payer OTHER, SELFPAY ==
--- OUTSIDE RECORDS SUMMARY | 2025-01-05 10:00 | XMS_ITS ---
Author Organization [facility] [address] Address [address] [place] [address] Care Team Providers Care Executive Sales Manager Name Role Phone [facility] Primary C are Provider Unavailable SUE MEDINA Unavailable [phone] Medications Medication SIG (Take, Route, Frequency, Duration) [...] Active Encounters Encounter Location Date Provider Diagnosis [facility] [address] [place] [id number] 01/05/2025 SUE MEDINA Assessments Encounter Date Diagnosis [...] Consider using apps like 7 minute excercise, myOpternativenesspal, lose it, stick as needed for self-monitoring and weight management. Consider group exercises. Consider hiring a certified personal trainer. Regular exercise is shafer to sustainable health [...] counseling and psychiatry and Dr Ritchie at [facility]. We would like to cover regular topics [...] Dictation was accomplished with the use of Find[employer]ogi voice recognition software, prone to medical misidentifications [...] * Erik PORRASOB:[birth year] (35 yo F)Acc No.[id number]:01/05/2025 Patient: Lotus CAMPBELL Provider: Hay MEDINA :1990 A ge:34 Y S ex:Female Date:01/05/2025 Address:[facility] [address] [place], [place] Pcp:[facility] Dorian Subjective: * Chief Complaints: * [...] Consider using apps like 7 minute excercise, myOpternativenesspal, lose it, stick as needed for self-monitoring and weight management. Consider group exercises. Consider hiring a certified personal trainer. Regular exercise is shafer to sustainable health [...] counseling and psychiatry and Dr Ritchie at [facility] [employer]. We would like to cover regular topics [...] Dictation was accomplished with the use of FindYogi voice recognition software, prone to medical misidentifications [...] * Electronic signature of MINNIE MEDINA PA-C, [id number] on 08/24/2025 at 09:32 AM EDT Sign off status: Pending * Provider: Hay MEDINA Date: 0 01/05/2025 Generated for Joe tomlinson/Linda/eTrjsmitting on: 1 09:32 AM EDT History and Physical Notes * HPI [...]
--- OUTSIDE RECORDS SUMMARY | 2025-01-12 11:15 | XMS_ITS ---
Author Organization [facility] [address] Address [address] [place] [address] Care Team Providers Care Production Bow Maker Name Role Phone [facility] Primary C are Provider Unavailable SUE MEDINA [phone] Encounters Encounter Location Date Provider Diagnosis [facility] [address] [address] 01/12/2025 SUE MEDINA Plan Of Treatment No Information Progress Notes * Erik PORRASOB:[birth year] (35 yo F)Acc No.[id number]:01/12/2025 CPE Patient: Lotus CAMPBELL Provider: Hay MEDINA :1990 A ge:34 Y S ex:Female Date:01/12/2025 Address:[id number] Pcp:[facility] Dorian Subjective: * Chief Complaints: * * Medical History: Objective: * Vitals: Assessment: Plan: * Treatment: * Images: Billing Information: * Visit Code: * Procedure Codes: Care Plan Details* * Electronic signature of MINNIE MEDINA PA-C, [id number] on 08/24/2025 at 09:33 AM EDT Sign off status: Pending * Provider: Hay MEDINA Date: 0 01/12/2025 Generated for Joe tomlinson/Fatessg/eTransmitting on: 1 09:33 AM EDT
--- OUTSIDE RECORDS SUMMARY | 2025-02-07 10:45 | XMS_ITS ---
Author Organization [facility] [address] Address [address] [place] [address] Care Team Providers Care Grievance Coordinator Name Role Phone [facility] Primary C are Provider Unavailable SUE MEDINA [phone] Encounters Encounter Location Date Provider Diagnosis [facility] [address] [address] 02/07/2025 SUE MEDINA Plan Of Treatment No Information Progress Notes * Erik PORRASOB:[birth year] (35 yo F)Acc No.[id number]:02/07/2025 Patient: Santiago CAMPBELLie Provider: Hay MEDINA :1990 A ge:34 Y S ex:Female Date:02/07/2025 Address:[address] [id number] Pcp:[facility] Dorian Subjective: * Chief Complaints: * * Medical History: Objective: * Vitals: Assessment: Plan: * Treatment: * Images: Billing Information: * Visit Code: * Procedure Codes: * Electronic signature of MINNIE MEDINA PA-C, [id number] on 08/24/2025 at 09:33 AM EDT Sign off status: Pending * Provider: Hay MEDINA Date: 0 02/07/2025 Generated for Joe tomlinson/Fabeatris/eTransmitting on: 1 09:33 AM EDT
--- OUTSIDE RECORDS SUMMARY | 2025-08-24 09:32 | XMS_ITS | Clinical Summary ---
Author Organization [facility] [address] [place] [address] [place], [place] [address] [address] Phone Care Team Providers Care Motor Vehicle Parts Interpreter Name Role Phone Unavailable Primary Care Provider [...] 01/04/2021 Anxiety and depression 08/03/2019 Suicide attempt ([facility] V[facility], [facility] V28) 08/03 GERD (gastroesophageal reflux disease) [...] Care Team Description 07/27/2025 Telephone Adult Medicine [address] [address] Sejal Winters MD from Last 3 Months Immunizations Immunization Administration Dates Next Due DTaP (Infanrix) 6wks to less than 7yo ,03/09/1990,1988,09/09,1988 [id number] (Pentacel) 2mo to less than 5yo 02/07/1990 [...] HISTORICAL TONSILLECTOMY OTHER SURGICAL HISTORY 10/27/2018 PROCEDURE: [place] ENDOMETRIAL BX W/WO ENDOCERVIX BX W/O DILAT SPX; COMMENT: [facility] report-benign tissue Medical History Medical History Date [...] care for your loved ones. For example, early childhood worker or elderly care for an older adult? [...] Health Maintenance Results * Depression Screening (08/30/2024) [facility] Depression Screening abstracted [facility] Provider HEALTH MAINTENANCE Final Result * (ABNORMAL) Lipid panel (12/09/2023) [facility] LDL/HDL Ratio 2 0 - 4 Triglycerides 64 0 - 150 mg/dL Cholesterol 207(A) 0 - 200 mg/dL HDL 86 >=40 mg/dL LDL Cholesterol 109(A) 0 - 100 mg/dL Blood Venous blood specimen / Unknown Historical Provider LAB BLOOD ORDERABLES Poonam l Result * Cervical Cancer Screening: HPV (10/10/2021) [facility] Cervical Cancer Screening: HPV abstracted ,positive Historical Provider HEALTH MAINTENANCE Final Result * Hepatitis C Screening (07/24/2021) [facility] Hepatitis C Screening abstracted Historical Provider HEALTH MAINTENANCE Final Result * Hm HIV Screening (07/19/2021) HIV Screening abstracted us Historical Provider HEALTH MAINTENANCE Final Result from Last 3 Months or Most Recently Relevant to Health Maintenance Insurance [facility] [facility]
--- OUTSIDE RECORDS SUMMARY | 2025-08-24 09:33 | XMS_ITS | Clinical Summary ---
Author Organization [employer] [facility] Address [address] [place] [address] Care Team Providers Care Functional Tester Typewriters Name Role Phone Aldair Gooden MD Primary Care Provider [phone] Allergies Active Allergy Reactions Criticality Noted Date [...] of Treatment Not on file Care Teams Functional Tester Typewriters Relationship Specialty Start Date End Date Aldair Gooden MD [address] [facility] [place] [address] PCP - General Family Medicine 12/08/18
--- OUTSIDE RECORDS SUMMARY | 2025-08-24 09:33 | XMS_ITS | Patient Health Record ---
Author Organization [facility] [address] Address [address] [place] [address] Care Team Providers Care Manager Event Name Role Phone [facility] [place] Primary C are Provider Unavailable SUE MEDINA Unavailable [phone] Allergies Allergen (clinical drug ingredient) Drug/Non Drug [...] Status Risk Notes Problem Vitamin D deficiency (92562718) Vitamin D deficiency, unspecified (E55.9) Active confirmed Problem Lipid screening (097890178) Encounter for screening for lipoid disorders (Z13.220) Active confirmed Problem Colon cancer screening (379455045) Colon cancer screening (Z12.11) Active confirmed Problem Adult health examination (083673565) Adult general medical exam (Z00.00) Active confirmed Problem Obesity (256203703) Obesity (BMI 30-39.9) (E66.9) Active confirmed Problem Anxiety depression (402554805) Anxiety with depression (F41.8) Active confirmed Problem Endocrine/[place] lic screening (350187517) Encounter for screening for endocrine disorder (Z13.29) Active confirmed Vital Signs Heart Rate 79 /min 12/01/2024 Oximetry 98 % 12/01/2024 Blood pressure diastolic 76 mm Hg 12/01/2024 Height 64 in 12/01/2024 Blood pressure systolic 104 mm Hg 12/01/2024 Weight 221 lbs 12/01/2024 BMI 37.93 kg/m2 12/01/2024 Encounters Encounter Location Date Provider Diagnosis [facility] [address] [facility] [address] [place] [address] 12/01/2024 SUE MEDINA Breast cancer screening, high risk patient Z12.39 ; Anxiety with depression F41.8 ; History of cold sores Z86.19 and Obesity (BMI 30-39.9) E66.9 [facility] [address] [facility] [address] [place] [address] 01/05/2025 SUE MEDINA [facility] [address] [facility] [address] [facility] [address] [place] [address] 01/03/2025 SUE MEDINA Assessments Encounter Date Diagnosis (ICD Code) Assessment Notes Treatment Notes Treatment Clinical Notes Section Notes 12/01/2024 Anxiety with depression (ICD-10 - F41.8) Lotus is a 34-year-old female who presents to the office today for new patient evaluation. Patient is welcomed to the practice. They are coming from [facility]. Last complete physical exam with labs [...] Dictation was accomplished with the use of FlockTAG voice recognition software, which is prone to [...] to the practice. They are coming from [facility] in [place]. Last complete physical exam with labs 3 [...] Dictation was accomplished with the use of FlockTAG voice recognition software, which is prone to [...] to the practice. They are coming from [facility]. Last complete physical exam with labs [...] Dictation was accomplished with the use of FlockTAG voice recognition software, which is prone to [...] to the practice. They are coming from [facility] in [place]. Last complete physical exam with labs 3 [...] Dictation was accomplished with the use of FlockTAG voice recognition software, which is prone to [...] Consider using apps like 7 minute excercise, myOncoscopepal, lose it, stick as needed for self-monitoring and weight management. Consider group exercises. Consider hiring a personal financial advisor. Regular exercise is shafer to sustainable health [...] counseling and psychiatry and Dr Ritchie at [facility]. We would like to cover regular topics [...] Dictation was accomplished with the use of FlockTAG voice recognition software, prone to medical misidentifications [...] Insured Coverage Start Date Coverage End Date [facility] [address] [place] [address] [id number] Lotus Maradiaga Self - patient is the insured 4 Medical (General) History Medical History History ICD Code weight gain/loss Surgical History Surgery Date(Month/Year) hernia repairs
--- OUTSIDE RECORDS SUMMARY | 2025-08-24 09:34 | XMS_ITS | Clinical Summary ---
Author Organization [facility] Address [address] [id number] Care Team Providers Care Loan Interviewer Name Role Phone Aldair Gooden MD Primary Care Provider [phone] Aldair Gooden MD Unavailable [phone] Allergies Active Allergy Reactions Criticality Noted Date Comments Amoxicillin 01/05/2019 Reactions: Rash Latex 01/05/2019 Reactions: Rash , TouchWorks Comment: [id number]: local rash Medications Omeprazole Magnesium (PriLOSEC OTC) [...] age to complete this topic Care Teams Loan Interviewer Relationship Specialty Start Date End Date Aldiar Gooden MD [address] [address] PCP - General 06/15/23 Aldair Gooden MD [address] [address] PCP - Backup PCP Family Medicine 12/10/23
[2025-08-24 10:05] LABS: MANUAL DIFF FLAG NO
[2025-08-24 10:10] LABS: Hematocrit 40.4 % (37.0-47.0); Hemoglobin 13.8 g/dl (12.0-16.0); Imm Gran Abs Auto 0.08 X10*3/uL (0.00-0.03); Imm Gran Pct Auto 1.2 % (0.0-0.4); Lymphocytes Absolute Auto 2.3 X10*3/uL (1.2-4.9); Mean Corpuscular HGB Conc 34.2 g/dl (31.0-35.0); Mean Corpuscular Hemoglobin 32.0 pg (27.0-33.0); Mean Corpuscular Volume 93.7 fL (80.0-98.0); NRBC Abs Auto 0.000 X10*3/uL (0.0-0.012); NRBC Pct Auto 0.0 /100WBC (0.0-0.2); Platelet Count 262 X10*3/uL (160-400); Red Blood Count 4.31 X10*6/uL (4.20-5.50); White Blood Count 6.6 X10*3/uL (4.8-10.8)
[2025-08-24 11:23] LABS: Alanine Aminotransferase 19 U/L (0-31); Albumin Level 4.1 g/dL (3.5-5.0); Alkaline Phosphatase 66 U/L (39-117); Anion Gap 13 (12-20); Aspartate Amino Transferase 21 U/L (5-31); Blood Urea Nitrogen 13 mg/dL (9-16); Calcium 9.1 mg/dL (8.4-10.2); Carbon Dioxide 22 mmol/L (22-29); Chloride 109 mmol/L (96-108); Cholesterol 186 mg/dL (<200); Estimated Glomerular Filt Rate > 60; Ferritin 60 ng/mL (10-122); HDL Cholesterol 62 mg/dL (>40); Potassium 4.2 mmol/L (3.3-5.1); Sodium 140 mmol/L (135-145); Total Protein 6.7 g/dL (6.5-8.0); Triglycerides 95 mg/dL (<150)
== END 2025-08-24 08:45 | disposition home or self-care (01) ==
LOC: HO.HMGCLDS 08:44
PROVIDERS: PCP Physician Assistant; Visit Provider Physician Assistant
DX: Z00.00 Encounter for general adult medical examination without abnormal findings (principal); Z13.6 Encounter for screening for cardiovascular disorders; Z13.21 Encounter for screening for nutritional disorder; Z13.29 Encounter for screening for other suspected endocrine disorder; Z13.0 Encounter for screening for diseases of the blood and blood-forming organs and certain disorders involving the immune mechanism
CPT/HCPCS: 36415; 80048; 80061; 80076; 82306; 82728; 84443; 85025

== ENCOUNTER 2025-10-30 08:34 | Outpatient (AMB) | payer OTHER, SELFPAY ==
--- OUTSIDE RECORDS SUMMARY | 2025-02-07 09:45 | XMS_ITS ---
Author Organization [facility] [address] Address [address] [place] [address] Care Team Providers Care Pest Control Specialist Name Role Phone [facility] Primary C are Provider Unavailable SUE MEDINA [phone] Encounters Encounter Location Date Provider Diagnosis [facility] [address] [address] 02/07/2025 SUE MEDINA Plan Of Treatment No Information Progress Notes * Erik PORRASOB:[birth year] (35 yo F)Acc No.[id number]:02/07/2025 Patient: Santiago Valentinie Provider: Hay MEDINA :1990 A ge:34 Y S ex:Female Date:02/07/2025 Address:[facility] [address] Pcp:[facility] Dorian * Electronic signature of MINNIE MEDINA PA-C, [id number] on 10/30/2025 at 08:51 AM EST Sign off status: Pending * Provider: Hay MEDINA Date: 0 02/07/2025 Generated for Joe tomlinson/Linda/eTransmitting on: 1 12/31/2024 08:51 AM EST
--- NOTE | 2025-10-30 08:40 | MHC.OFFWIV ---
Intake Vital Signs 10/30/25 08:42 Height 5 ft 4 in Weight 225 lb BMI 38.6 BP 120/80 Blood Pressure Location Lt brachial Position Sitting Pulse 74 Pulse Source Pulse Oximeter Temp 98.0 F Temp Source Oral Pulse Oximetry (%) 98 Intake Visit Reasons: EP Possible sinus infection, lower abd pressure Patient Tobacco Use Status: Never used Tobacco Allergies amoxicillin Allergy (Mild, Verified 10/30/25 08:42) Rash latex Allergy (Mild, Verified 10/30/25 08:42) Rash Medication List - Last Reconciled 10/30/25 by Guerda Huertas NP ascorbate calcium (vitamin C) 500 mg PO DAILY cholecalciferol (vitamin D3) 25 mcg PO DAILY doxycycline hyclate 100 mg PO BID 10 days etonogestrel-ethinyl estradiol 0.12-0.015 mg/24 hr (NuvaRing) 1 vag ring vaginal Q4W fluconazole 150 mg PO Q3D 3 days hydroxyzine HCl 10 mg PO TID PRN valacyclovir (Valtrex) 1,000 mg PO DAILY PRN Do you need a note to return to daycare/school/sports/work: Yes HPI HPI Comments History of Present Illness Details 35-year-old female presents to the walk-in clinic with complaints of upper respiratory infection (URI) symptoms ongoing for over 1 week. Patient reports sinus pressure, nasal congestion, headaches, and bilateral ear pain with a sensation of pressure. She has tried [id number] remedies with minimal relief. Denies fevers, chills, nausea, or vomiting. Patient also reports a brief episode of urinary frequency associated with lower abdominal cramping that lasted for one day and has since resolved. She reports these symptoms occurred while she was on her menstrual cycle, which has now ended. Denies current urinary symptoms. 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 [facility] Medical History (Updated 10/30/25 @ 09:07 by Guerda Huertas NP) Increased frequency of urination Sinusitis Edema Lightheadedness Anxiety Mitral valve regurgitation Tricuspid regurgitation Family History Maternal Aunt Breast cancer, Onset Age: 30 Paternal Aunt Breast cancer, Onset Age: 35 Son Type 1 diabetes Mother Schizophrenia Bipolar disorder COPD (chronic obstructive pulmonary disease) Diabetes Social History Housing: House Patient Tobacco Use Status: Never used Tobacco e-Cigarette/Vaping Use: Never Used service: No Current occupational status: employed 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[place] [employer] [place] Review of Systems Const All systems reviewed & are unremarkable except as noted in HPI and below Physical Exam Vital Signs: Last Vital Signs Temp 98.0 F 10/30/25 08:42 Pulse 74 10/30/25 08:42 BP 120/80 10/30/25 08:42 Pulse Ox 98 10/30/25 08:42 BMI result Body Mass Index 38.6 Const General: no acute distress; No comfortable Nutritional Appearance: obese Orientation/consciousness: patient oriented x3 HEENT Head: Yes normocephalic Ears: external ears normal and TM abnormal bulging bilateral and with fluid behind the TM bilateral General nose exam: Normal external nose present, Abnormal mucous membranes and turbinates present boggy and erythematous and Nasal discharge present Face and sinus: Yes normal facial exam and Yes sinus tenderness Mouth: moist mucous membranes Throat: Yes uvula midline Resp Effort & Inspection: normal respiratory effort and able to speak in complete sentences Auscultation: clear to auscultation bilaterally, no crackles, no rales, no rhonchi and no wheezes Cardio Heart sounds: S1 normal heart sound present and S2 normal heart sound present Other: Urinary frequency resolved; denies dysuria, hematuria, or flank pain. Neuro General: patient oriented x3 Results AMB Urinalysis, Automated UA Leukoctes 0 Jaymie/uL Last Edit by Hany Ponce CMA on 10/30/25 08:44 UA Nitrite Negative Last Edit by Hany Ponce CMA on 10/30/25 08:44 UA Urobilinogen 0.2 mg/dL Last Edit by Hany Ponce CMA on 10/30/25 08:44 UA Protein 0 mg/dL Last Edit by Hany Ponce CMA on 10/30/25 08:44 UA pH 6.0 Last Edit by Hany Ponce CMA on 10/30/25 08:44 UA Blood 0 Malcolm/uL Last Edit by Hany Ponce CMA on 10/30/25 08:44 UA Specific [place] 1.030 Last Edit by Hany Ponce CMA on 10/30/25 08:44 UA Ketone Negative Last Edit by Hany Ponce CMA on 10/30/25 08:44 UA Bilirubin 0 mg/dL Last Edit by Hany Ponce CMA on 10/30/25 08:44 UA Glucose 0 mg/dL Last Edit by Hany Ponce CMA on 10/30/25 08:44 Results Reviewed Results Reviewed: Laboratory Last Values Urine pH (Auto) 6.0 10/30/25 08:43 Specific [place] (Auto) 1.030 10/30/25 08:43 Urine Protein (Auto) 0 mg/dL 10/30/25 08:43 Glucose (UA)(Auto) 0 mg/dL 10/30/25 08:43 Urine Ketones (Auto) Negative 10/30/25 08:43 Urine Blood (Auto) 0 Malcolm/uL 10/30/25 08:43 Urine Nitrite (Auto) Negative 10/30/25 08:43 Urine Bilirubin (Auto) 0 mg/dL 10/30/25 08:43 Urine Urobilinogen (Auto) 0.2 mg/dL 10/30/25 08:43 Leukocyte Esterase (Auto) 0 Jaymie/uL 10/30/25 08:43 Assessment & Plan Assessment & Plan (1) Sinusitis: Code(s): J32.9 - Chronic sinusitis, unspecified Plan: Ordered Doxy due to PCN Allergy. Intranasal corticosteroid (e.g., Fluticasone) daily Oral antihistamine and/or decongestant as needed NSAIDs or acetaminophen for headache and sinus pressure. Encouraged increased oral fluids Saline nasal spray or sinus rinses. Steam inhalation and humidifier use (2) Increased frequency of urination: Code(s): R35.0 - Frequency of micturition Plan: Urinalysis negative. No treatment indicated at this time as symptoms have resolved Advise patient to return if urinary symptoms recur or worsen. Orders: Orders AMB Urinalysis Automated Today Z13.9 - Encounter for screening, unspecified Medications: New doxycycline hyclate 100 mg PO BID 10 days 20 caps 0RF J32.9 - Chronic sinusitis, unspecified doxycycline hyclate 100 mg PO BID 20 caps 0RF 10 days J32.9 - Chronic sinusitis, unspecified fluconazole 150 mg PO Q3D 3 days 3 tabs 2RF R35.0 - Frequency of micturition fluconazole 150 mg PO Q3D 3 tabs 2RF 3 days R35.0 - Frequency of micturition Coding Level of Care Code Est Pt Level 4 (45569) Diagnoses Sinusitis J32.9 Increased frequency of urination R35.0 Time Spent (min) 20
[2025-10-30 08:42] VITALS: BP 120/80; PULSE 74; TEMP 36.7; O2SAT 98; BMI 38.6
--- OUTSIDE RECORDS SUMMARY | 2025-10-30 08:51 | XMS_ITS | Clinical Summary ---
Author Organization [facility] [address] [place] [address] [place] [address] [place] [address] Phone Care Team Providers Care Chief Relay Tester Name Role Phone Unavailable Primary Care Provider Unavailabl e Allergies Active Allergy Reactions Criticality Noted Date Comments Amoxicillin Trihydrate Hives 08/04/2012 Latex Rash Medium 05/03/2012 Medications valACYclovir (VALTREX) 1 gram tablet Take 1 tablet (1,000 mg total) by mouth 1 (one) time each day. 4 Active albuterol HFA (PROAIR HFA ; PROVENTIL HFA ; VENTOLIN HFA) 90 mcg/actuation inhaler Inhale 2 Puffs into the lungs 4 times daily as needed for Cough, Wheezing or Shortness of Breath. 3 Active hydrOXYzine HCL (ATARAX) 10 mg tablet Take 1 Tablet by mouth 3 times daily as needed for Anxiety for up to 90 days. Active furosemide (LASIX) 20 mg tablet Take 1 tablet (20 mg total) by mouth 1 (one) time each day. 30 each 5 Active etonogestreL-ethi nyl estradioL (EluRyng) 0.12-0.015 mg/24 hr vaginal ringIndications:E ncounter for surveillance of vaginal ring hormonal contraceptive device Insert vaginally and leave in place for 3 consecutive weeks, then remove for 1 week. 1 each 2 5 Active Active Problems Problem Noted Date Diagnosed Date Abnormal Pap smear of cervix 09/06/2024 Overview (09/06/2024): LGSIL with colpo & bx showing HPV Yeast vaginitis 07/19/2021 Overview (09/06/2024): Last Assessment & Plan: Rx for fluconazole. Obesity (BMI 30.0-34.9) 01/04/2021 Anxiety and depression 08/03/2019 Suicide attempt 08/03/2019 GERD (gastroesophageal reflux disease) 9 Herpes simplex vulvovaginitis 03/17/2018 Overview (09/06/2024): Last Assessment & Plan: Educated pt re: HSV transmission and treatment. I gave Rx for tx dose prn. Offered suppression, but she declines at this time. UpToDate article patient education material given. Port-wine stain of face 08/08/2015 Asthma 01/16/2014 Immunizations Immunization Administration Dates Next Due DTaP (Infanrix) 6wks to less than 7yo ,03/09/1990,1988,09/09,1988 [id number] (Pentacel) 2mo to less than 5yo 02/07/1990 [...] HISTORICAL TONSILLECTOMY OTHER SURGICAL HISTORY 10/27/2018 PROCEDURE: [place] ENDOMETRIAL BX W/WO ENDOCERVIX BX W/O DILAT SPX; COMMENT: [facility] report-benign tissue Medical History Medical History Date [...] 03/09/1990, Additional history exists COVID-19 Vaccine ( season) 2025 10/12/2021, 12/14/2020, 11/23/2020 Influenza Vaccine [...] Maintenance Results * Depression Screening (08/30/2024) [facility] Depression Screening abstracted [facility] Provider HEALTH MAINTENANCE Final Result * (ABNORMAL) Lipid panel (12/09/2023) [facility] LDL/HDL Ratio 2 0 - 4 Triglycerides 64 0 - 150 mg/dL Cholesterol 207(A) 0 - 200 mg/dL HDL 86 >=40 mg/dL LDL Cholesterol 109(A) 0 - 100 mg/dL Blood Venous blood specimen / Unknown [facility] Provider LAB BLOOD ORDERABLES Poonam l Result * Cervical Cancer Screening: HPV (10/10/2021) [facility] Cervical Cancer Screening: HPV abstracted ,positive [facility] Provider HEALTH MAINTENANCE Final Result * Hepatitis C Screening (07/24/2021) [facility] Hepatitis C Screening abstracted [facility] Provider HEALTH MAINTENANCE Final Result * HIV Screening (07/19/2021) [facility] HIV Screening abstracted [facility] Provider HEALTH MAINTENANCE Final Result from Last 3 Months or Most Recently Relevant to Health Maintenance Insurance [place] [address]
--- OUTSIDE RECORDS SUMMARY | 2025-10-30 08:51 | XMS_ITS | Patient Health Record ---
Author Organization [facility] [address] Address [address] [place] [address] Care Team Providers Care Senior Security Architect Name Role Phone [facility] [place] Primary C are Provider Unavailable SUE MEDINA Unavailable [phone] Allergies Allergen (clinical drug ingredient) Drug/Non Drug Allergy documented on EMR Reaction Allergy Type Onset Date Status amoxicillin Amoxicillin Unknown Drug Allergy Act dennis Latex Latex Unknown Allergy Active Reason For Referral No Information Medications Medication SIG (Take, Route, Frequency, Duration) Notes Start Date End Date Status Propranolol HCl 10 MG Tablet Take 1-2 tablets as needed for anxiety Orally 1-2 times daily; Duration: 30 days 12/01/2024 Active hydrOXYzine HCl 10 MG Tablet TAKE 1 TABLET BY MOUTH THREE TIMES DAILY NEEDED FOR ANXIETY FOR UP TO 90 DAYS Oral; Duration: 30 Days Active valACYclovir HCl 1 GM Tablet Oral; Duration: 5 Days Activ e EluRyng 0.12-0.015 MG/24HR Ring Vaginal; Duration: 28 Days Active Problems Problem Type SNOMED Code ICD Code Onset Dates Problem Status W/U Status Risk Notes Problem Vitamin D deficiency (07472574) Vitamin D deficiency, unspecified (E55.9) Active confirmed Problem Lipid screening (459767578) Encounter for screening for lipoid disorders (Z13.220) Active confirmed Problem Colon cancer screening (649195867) Colon cancer screening (Z12.11) Active confirmed Problem Adult health examination (225948395) Adult general medical exam (Z00.00) Active confirmed Problem Obesity (643727561) Obesity (BMI 30-39.9) (E66.9) Active confirmed Problem Anxiety depression (184137049) Anxiety with depression (F41.8) Active confirmed Problem Endocrine/metabo lic screening (444534674) Encounter for screening for endocrine disorder (Z13.29) Active confirmed Vital Signs Heart Rate 79 /min 12/01/2024 Oximetry 98 % 12/01/2024 Blood pressure diastolic 76 mm Hg 12/01/2024 Height 64 in 12/01/2024 Blood pressure systolic 104 mm Hg 12/01/2024 Weight 221 lbs 12/01/2024 BMI 37.93 kg/m2 12/01/2024 Encounters Encounter Location Date Provider Diagnosis [facility] [address] [facility] [address] [place] [address] 12/01/2024 SUE MEDINA Breast cancer screening, high risk patient Z12.39 ; Anxiety with depression F41.8 ; History of cold sores Z86.19 and Obesity (BMI 30-39.9) E66.9 [facility] [address] [facility] [address] [place] [address] 01/05/2025 SUE MEDINA [facility] [address] [facility] [address] [place] [address] 01/03/2025 SUE MEDINA Assessments Encounter Date Diagnosis (ICD Code) Assessment Notes Treatment Notes Treatment Clinical Notes Section Notes 12/01/2024 Anxiety with depression (ICD-10 - F41.8) Lotus is a 34-year-old female who presents to the office today for new patient evaluation. Patient is welcomed to the practice. They are coming from [facility]. Last complete physical exam with labs [...] Dictation was accomplished with the use of [employer] voice recognition software, which is prone to [...] to the practice. They are coming from [facility] in [place]. Last complete physical exam with labs 3 [...] Dictation was accomplished with the use of [employer] voice recognition software, which is prone to [...] to the practice. They are coming from [facility]. Last complete physical exam with labs [...] Dictation was accomplished with the use of [employer] voice recognition software, which is prone to [...] to the practice. They are coming from [facility] in [place]. Last complete physical exam with labs 3 [...] Dictation was accomplished with the use of [employer] voice recognition software, which is prone to medical misidentifications and grammatical errors. This are unintentional and the practitioner does try to identify and correct these, but some could still be present. Please do not hesitate to contact practitioner for clarification. Plan Of Treatment Pending Test Test Name Order Date Mammogram 12/01/2024 LIPID PANEL, STANDARD 12/01/2024 COMPREHENSIVE METABOLIC PANEL 12/01/2024 CBC (INCLUDES DIFF/PLT) 12/01/2024 URINALYSIS, COMPLETE 12/01/2024 TSH 12/01/2024 VITAMIN D,25-OH,TOTAL,IA 12/01/2024 Insurance Providers Payer Name Payer Address Payer Phone Subscriber Number Group Number Insured Name Patient Relationship to Insured Coverage Start Date Coverage End Date [facility] [address] [place] [address] [id number] Lotus Maradiaga Self - patient is the insured 4 Medical (General) History Medical History History ICD Code weight gain/loss Surgical History Surgery Date(Month/Year) hernia repairs
--- OUTSIDE RECORDS SUMMARY | 2025-10-30 08:51 | XMS_ITS | Clinical Summary ---
Author Organization [facility] Address [address] [id number] Care Team Providers Care Burr Grinder Name Role Phone Aldair Gooden MD Primary Care Provider [phone] Aldair Gooden MD Unavailable [phone] Allergies Active Allergy Reactions Criticality Noted Date Comments Amoxicillin 01/05/2019 Reactions: Rash Latex 01/05/2019 Reactions: Rash , TouchWorks Comment: [id number]: local rash Medications Omeprazole Magnesium (PriLOSEC OTC) [...] age to complete this topic Care Teams Burr Grinder Relationship Specialty Start Date End Date Aldair Gooden MD [address] [address] PCP - General 06/15/23 Aldair Gooden MD [address] [address] PCP - Backup PCP Family Medicine 12/10/23
--- OUTSIDE RECORDS SUMMARY | 2025-10-30 08:51 | XMS_ITS | Clinical Summary ---
Author Organization [facility] Prior to 04/08/[address] [place] [address] Care Team Providers Care Digital Sales Executive Name Role Phone Aldair Gooden MD Primary Care Provider [phone] Allergies Active Allergy Reactions Criticality Noted Date [...] of Treatment Not on file Care Teams Digital Sales Executive Relationship Specialty Start Date End Date Aldair Gooden MD [address] [facility] [place] [address] PCP - General Family Medicine 12/08/18
== END 2025-10-30 09:13 | disposition home or self-care (01) ==
PROVIDERS: PCP Physician Assistant; Visit Provider Nurse Practitioner Family
DX: J32.9 Chronic sinusitis, unspecified (principal); R35.0 Frequency of micturition; Z13.9 Encounter for screening, unspecified

== ENCOUNTER → 2025-10-30 08:34 | Outpatient (BNVA) | payer OTHER, SELFPAY | PROVIDERS: PCP Physician Assistant; Visit Provider Nurse Practitioner Family | DX: R35.0 Frequency of micturition (principal) | CPT/HCPCS: 81003 ==

== ENCOUNTER 2025-11-07 09:28 | Outpatient (AMB) | payer OTHER, SELFPAY ==
--- OUTSIDE RECORDS SUMMARY | 2025-02-07 09:45 | XMS_ITS ---
Author Organization [facility] [address] Address [address] [place] [address] Care Team Providers Care Pastoral Counselor Name Role Phone [facility] Primary C are Provider Unavailable SUE MEDINA [phone] Encounters Encounter Location Date Provider Diagnosis [facility] [address] [address] 02/07/2025 SUE MEDINA Plan Of Treatment No Information Progress Notes * Erik PORRASOB:[birth year] (35 yo F)Acc No.[id number]:02/07/2025 Patient: Santiago Valentinie Provider: Hay MEDINA :1990 A ge:34 Y S ex:Female Date:02/07/2025 Address:[facility] [address] Pcp:[facility] Dorian * Electronic signature of MINNIE MEDINA PA-C, [id number] on 11/07/2025 at 12:07 PM EST Sign off status: Pending * Provider: Hay MEDINA Date: 0 02/07/2025 Generated for Joe ng/Linda/eTransmitting on: 1 12:07 PM EST
--- NOTE | 2025-11-07 09:41 | AM.OFFWIN_ITS ---
Intake Vital Signs 11/07/25 09:44 Height 5 ft 4 in Weight 225 lb BMI 38.6 BP 124/66 Blood Pressure Location Lt brachial Position Sitting Pulse 81 Pulse Source Pulse Oximeter Temp 97.5 F Temp Source Oral Pulse Oximetry (%) 99 Oxygen Delivery Method Room Air Intake Visit Reasons: EP Kidney stones?? Intake Note: Patient presents c/o urinary frequency, painful urination, left flank pain, abdominal pressure, unable to fully relieve bladder x10 days. Patient Tobacco Use Status: Never used Tobacco Allergies amoxicillin Allergy (Mild, Verified 11/07/25 09:43) Rash latex Allergy (Mild, Verified 11/07/25 09:43) Rash HPI HPI Comments History of Present Illness Details History of Present Illness - The patient is a 35-year-old female pr esenting with urinary symptoms and flank pain. - Her symptoms began over a week ago, on October 28, with shooting pains in her urethra, difficulty urinating, and polyuria, particularly at night. - A urinalysis was performed on 10/30 wh ich was negative for infection. - On November 04, at 1:30 AM , she awoke with severe, shooting left-sided pain that started in her back, wrapped around her waist, and radiated down the left side of her abdomen, which lasted for 75 minutes. - The pain subsided after she took a hot shower and drank a significant amount of water and urinated but she did not hear a clink in the toilet. - She denies any known history of kidney stones. - She reports having a 99.6?F fever on November 03, which she feels was unrelated to her current symptoms and likely secondary to a URI. - She was previously prescribed doxycycl ine by another provider for a suspected sinus infection. - Her known allergies include amoxicilli n, penicillin, and latex. Review of Systems - Constitutional: Reports a recent, unre lated fever of 99.6?F. - Genitourinary: Reports shooting urethr al pain, dysuria, urinary frequency, and nocturia for over one week. - Musculoskeletal/Abdominal: Reports an episode of acute left flank pain radiating around the waist to the left abdomen. - Reports suprapubic pressure. All systems reviewed and are unremarkable except as noted in HPI Physical Exam General: Cooperative, healthy appearing, comfortable, no acute distress and well developed Orientation: Patient oriented x3 Limitations: No limitations Head: Normal to inspection Ears: Hearing grossly normal bilaterally Nose: Normal External nose present Face and sinus: Normal facial exam Eyes: Appearance normal, both eyes and all related structures Neck: Normal visual inspection and Yes full ROM Respiratory: Normal respiratory effort and able to speak in complete sentences. Skin: No rashes or lesions noted Neuro: Patient oriented x3 Back: CVA negatie bilaterally Extremities: Normal to inspection [facility] Medical History (Updated 11/07/25 @ 10:28 by Mar Rhodes PA-C) Flank pain Increased frequency of urination Sinusitis Edema Lightheadedness Anxiety Mitral valve regurgitation Tricuspid regurgitation Family History Maternal Aunt Breast cancer, Onset Age: 30 Paternal Aunt Breast cancer, Onset Age: 35 Son Type 1 diabetes Mother Schizophrenia Bipolar disorder COPD (chronic obstructive pulmonary disease) Diabetes Social History Housing: House Patient Tobacco Use Status: Never used Tobacco e-Cigarette/Vaping Use: Never Used service: No Current occupational status: employed Current occupation: [employer] - [employer] Physical Exam Vital Signs: Last Vital Signs Temp 97.5 F 11/07/25 09:44 Pulse 81 11/07/25 09:44 BP 124/66 11/07/25 09:44 Pulse Ox 99 11/07/25 09:44 Oxygen Delivery Method Room Air 11/07/25 09:44 BMI result Body Mass Index 38.6 Results AMB Urinalysis, Automated UA Leukoctes 15 Jaymie/uL Last Edit by Yazmin Dodge CMA on 11/07/25 09:34 UA Nitrite Negative Last Edit by Yazmin Dodge CMA on 11/07/25 09:34 UA Urobilinogen 0.2 mg/dL Last Edit by Yazmin Dodge CMA on 11/07/25 09: 34 UA Protein 30 mg/dL Last Edit by Yazmin Dodge CMA on 11/07/25 09:34 UA pH 6.0 Last Edit by Yazmin Dodge CMA on 11/07/25 09:34 UA Blood 200 Malcolm/uL Last Edit by Yazmin Dodge CMA on 11/07/25 09:34 UA Specific [place] 1.030 Last Edit by Yazmin Dodge CMA on 11/07/25 09 :34 UA Ketone Negative Last Edit by Yazmin Dodge CMA on 11/07/25 09:34 UA Bilirubin 0 mg/dL Last Edit by Yazmin Dodge CMA on 11/07/25 09:34 UA Glucose 0 mg/dL Last Edit by Yazmin Dodge CMA on 11/07/25 09:34 Results Reviewed Results Reviewed: Laboratory Last Values Urine pH (Auto) 6.0 11/07/25 09:33 Specific [place] (Auto) 1.030 11/07/25 09:33 Urine Protein (Auto) 30 mg/dL L* 11/07/25 09:33 Glucose (UA)(Auto) 0 mg/dL 11/07/25 09:33 Urine Ketones (Auto) Negative 11/07/25 09:33 Urine Blood (Auto) 200 Malcolm/uL H* 11/07/25 09:33 Urine Nitrite (Auto) Negative 11/07/25 09:33 Urine Bilirubin (Auto) 0 mg/dL 11/07/25 09:33 Urine Urobilinogen (Auto) 0.2 mg/dL 11/07/25 09:33 Leukocyte Esterase (Auto) 15 Jaymie/uL 11/07/25 09:33 Assessment & Plan Assessment & Plan (1) Flank pain: Code(s): R10.A0 - Flank pain, unspecified side Qualifiers: Laterality: left Qualified Code(s): R10.A2 - Flank pain, left side Plan: Patient was informed and verbally consented to the use of an ambient scribe for clinic note documentation during this visit. Suspected Nephrolithiasis - The patient's symptoms are consistent with renal colic, and there is a suspicion of a kidney stone located in the bladder or at the ureteropelvic junction. - An ultrasound has been scheduled for today at 12:30 PM to investigate further. - The plan will be reassessed following the results of the imaging. - The patient does not currently have a urologist. - US results show no nephrolithiasis or hydronephrosis, CC'd PCP on results. Pt should follow up with PCP if no improvement in pain, she may have already passed the stone. No indication for culture, UA negative for infection. Orders: Orders US renal LT Today R10.A0 - Flank pain, unspecified side AMB Urinalysis Automated Today Z13.9 - Encounter for screening, unspecified Medications: Discontinued doxycycline hyclate Discontinued Reason: Doctor's Order 100 mg PO BID 10 days 20 caps 0RF J32.9 - Chronic sinusitis, unspecified Coding Level of Care Code Est Pt Level 4 (49763) Diagnoses Left flank pain R10.A2 Laterality: left
[2025-11-07 09:44] VITALS: BP 124/66; PULSE 81; TEMP 36.4; O2SAT 99; BMI 38.6
--- OUTSIDE RECORDS SUMMARY | 2025-11-07 12:08 | XMS_ITS | Patient Health Record ---
Author Organization [facility] [address] Address [address] [place] [address] Care Team Providers Care Data Modeling Architect Name Role Phone [facility] [place] Primary C are Provider Unavailable SUE MEDINA Unavailable [phone] Allergies Allergen (clinical drug ingredient) Drug/Non Drug [...] Status Risk Notes Problem Vitamin D deficiency (90133790) Vitamin D deficiency, unspecified (E55.9) Active confirmed Problem Lipid screening (271698826) Encounter for screening for lipoid disorders (Z13.220) Active confirmed Problem Colon cancer screening (254448395) Colon cancer screening (Z12.11) Active confirmed Problem Adult health examination (002047990) Adult general medical exam (Z00.00) Active confirmed Problem Obesity (552401178) Obesity (BMI 30-39.9) (E66.9) Active confirmed Problem Anxiety depression (935760145) Anxiety with depression (F41.8) Active confirmed Problem Endocrine/metabo lic screening (786569992) Encounter for screening for endocrine disorder (Z13.29) Active confirmed Vital Signs Heart Rate 79 /min 12/01/2024 Oximetry 98 % 12/01/2024 Blood pressure diastolic 76 mm Hg 12/01/2024 Height 64 in 12/01/2024 Blood pressure systolic 104 mm Hg 12/01/2024 Weight 221 lbs 12/01/2024 BMI 37.93 kg/m2 12/01/2024 Encounters Encounter Location Date Provider Diagnosis [facility] [address] [facility] [address] [place] [address] 12/01/2024 SUE MEDINA Breast cancer screening, high risk patient Z12.39 ; Anxiety with depression F41.8 ; History of cold sores Z86.19 and Obesity (BMI 30-39.9) E66.9 [facility] [address] [facility] [address] [place] [address] 01/05/2025 SUE MEDINA [facility] [address] [facility] [address] [facility] [address] [place] [address] 01/03/2025 SUE MEDINA Assessments Encounter Date Diagnosis (ICD Code) Assessment Notes Treatment Notes Treatment Clinical Notes Section Notes 12/01/2024 Anxiety with depression (ICD-10 - F41.8) Lotus is a 34-year-old female who presents to the office today for new patient evaluation. Patient is welcomed to the practice. They are coming from [facility]. Last complete physical exam with labs [...] Dictation was accomplished with the use of [employer] voice recognition software, which is prone to [...] to the practice. They are coming from [facility] in [place]. Last complete physical exam with labs 3 [...] Dictation was accomplished with the use of [employer] voice recognition software, which is prone to [...] to the practice. They are coming from [facility]. Last complete physical exam with labs [...] Dictation was accomplished with the use of [employer] voice recognition software, which is prone to [...] to the practice. They are coming from [facility] in [place]. Last complete physical exam with labs 3 [...] Dictation was accomplished with the use of [employer] voice recognition software, which is prone to [...] Insured Coverage Start Date Coverage End Date [facility] [address] [place] [address] [id number] Lotus Maradiaga Self - patient is the insured 4 Medical (General) History Medical History History ICD Code weight gain/loss Surgical History Surgery Date(Month/Year) hernia repairs
--- OUTSIDE RECORDS SUMMARY | 2025-11-07 12:08 | XMS_ITS | Clinical Summary ---
Author Organization [facility] [address] [place] [address] [place] [address] [place] [address] Phone Care Team Providers Care Manager Contact Name Role Phone Unavailable Primary Care Provider [...] (Infanrix) 6wks to less than 7yo ,03/09/1990,1988,09/09,1988 [id number] (Pentacel) 2mo to less than 5yo 02/07/1990 [...] HISTORICAL TONSILLECTOMY OTHER SURGICAL HISTORY 10/27/2018 PROCEDURE: UT ENDOMETRIAL BX W/WO ENDOCERVIX BX W/O DILAT SPX; COMMENT: [facility] report-benign tissue Medical History Medical History Date [...] care for your loved ones. For example, child welfare worker or elderly care for an older [...] Health Maintenance Results * Depression Screening (08/30/2024) [facility] Depression Screening abstracted [facility] Provider HEALTH MAINTENANCE Final Result * (ABNORMAL) Lipid panel (12/09/2023) [facility] LDL/HDL Ratio 2 0 - 4 Triglycerides 64 0 - 150 mg/dL Cholesterol 207(A) 0 - 200 mg/dL HDL 86 >=40 mg/dL LDL Cholesterol 109(A) 0 - 100 mg/dL Blood Venous blood specimen / Unknown [facility] Provider LAB BLOOD ORDERABLES [place]oonam l Result * Cervical Cancer Screening: HPV (10/10/2021) [facility] Cervical Cancer Screening: HPV abstracted ,positive [facility] Provider HEALTH MAINTENANCE Final Result * Hepatitis C Screening (07/24/2021) [facility] Hepatitis C Screening abstracted [facility] Provider HEALTH MAINTENANCE Final Result * HIV Screening (07/19/2021) [facility] HIV Screening abstracted [facility] Provider HEALTH MAINTENANCE Final Result from Last 3 Months or Most Recently Relevant to Health Maintenance Insurance [facility]
--- OUTSIDE RECORDS SUMMARY | 2025-11-07 12:08 | XMS_ITS | Clinical Summary ---
Author Organization [facility] Address [address] [id number] Care Team Providers Care Adobe Flex Developer Name Role Phone Aldair Gooden MD Primary Care Provider [phone] Aldair Gooden MD Unavailable [phone] Allergies Active Allergy Reactions Criticality Noted Date Comments Amoxicillin 01/05/2019 Reactions: Rash Latex 01/05/2019 Reactions: Rash , [employer] Comment: [id number]: local rash Medications Omeprazole Magnesium (PriLOSEC OTC) [...] age to complete this topic Care Teams Adobe Flex Developer Relationship Specialty Start Date End Date Aldair Gooden MD [address] [address] PCP - General 06/15/23 Aldair Gooden MD [address] [address] PCP - Backup PCP Family Medicine 12/10/23
--- OUTSIDE RECORDS SUMMARY | 2025-11-07 12:08 | XMS_ITS | Clinical Summary ---
Author Organization [facility] Prior to 04/08/[address] [place] [address] Care Team Providers Care Bus Company Manager Name Role Phone Aldair Gooden MD Primary Care Provider [phone] Allergies Active Allergy Reactions Criticality Noted Date [...] of Treatment Not on file Care Teams Bus Company Manager Relationship Specialty Start Date End Date Aldair Gooden MD [address] [facility] [place] [address] PCP - General Family Medicine 12/08/18
== END 2025-11-07 10:47 | disposition home or self-care (01) ==
PROVIDERS: PCP Physician Assistant; Visit Provider Physician Assistant
DX: R10.A2 Flank pain, left side (principal); Z13.9 Encounter for screening, unspecified

== ENCOUNTER 2025-11-07 12:28 | Outpatient (REF) | payer OTHER, SELFPAY ==
--- NOTE | ~2025-11-07 | US_ITS ---
EXAMINATION: US RETROPERITONEUM HISTORY: R10.A0 - LEFT Flank pain, unspecified side and bladder TECHNIQUE: Real-time grayscale ultrasound imaging of the left kidney and urinary bladder was performed and images were reviewed. COMPARISON: There are no prior studies available for comparison. FINDINGS: The left kidney measures 12.7 x 4.9 x 6.4 cm. Renal parenchymal echotexture and thickness are normal. There are no masses. There is no hydronephrosis or renal calculi. The urinary bladder is unremarkable. Bilateral ureteral jets are identified. Before voiding, the urinary bladder measured 3.8 x 4.4 x 9.2 cm, for an estimated volume of 187 mL. After voiding, the urinary bladder measured 1.9 x 1.4 x 3.3 cm, for an estimated volume of 4.6 mL. US/US retroperitoneal comp IMPRESSION: 1. Unremarkable ultrasound of the left kidney. 2. Unremarkable ultrasound of the urinary bladder. 3. Post void bladder residual of 4.6 mL. Electronically signed by: Reuben Beard MD 11/07/2025 02:14 PM NITHIN
== END 2025-11-07 12:29 | disposition home or self-care (01) ==
LOC: HO.HMGCX 12:28
PROVIDERS: PCP Physician Assistant; Visit Provider Physician Assistant
DX: R10.A2 Flank pain, left side (principal); J32.9 Chronic sinusitis, unspecified
CPT/HCPCS: 76770; 81003

== ENCOUNTER → 2025-11-07 12:30 | Outpatient (BNV) | payer OTHER, SELFPAY | PROVIDERS: PCP Physician Assistant; Visit Provider Radiology Diagnostic Radiology | DX: R10.A0 Flank pain, unspecified side (principal) | CPT/HCPCS: 76770 ==